=== PATIENT | male | born 1955 | race Caucasian/White ===

== ENCOUNTER → 2018-03-05 16:57 | Outpatient (CLI) | payer OTHER, SELFPAY | PROVIDERS: Family Provider Family Medicine; PCP Family Medicine; Visit Provider Family Medicine | DX: S46.819A Strain of other muscles, fascia and tendons at shoulder and upper arm level, unspecified arm, initial encounter (principal) | CPT/HCPCS: 72050 ==

== ENCOUNTER → 2021-01-20 16:45 | Outpatient (CLI) | payer BC, SELFPAY ==
[2016-07-17 01:56] VITALS: BMI 28.8
[2021-01-20 18:38] LABS: ALB/GLOB Ratio 1.3 RATIO (0.9-2.4); AST(SGOT) 16 U/L (15-37); Alanine Aminotransfer ALT/SGPT 26 U/L (16-61); Albumin, Serum 3.9 g/dL (3.2-5.0); Alkaline Phosphatase 55 U/L (45-117); Anion Gap 5 (5-15); BUN 14 mg/dL (7-18); BUN/Creat Ratio 13.2 RATIO (10-20); Calcium,Total 9.3 mg/dL (8.5-10.1); Chloride 103 mmol/L (98-107); Creatinine, Serum 1.06 mg/dL (0.70-1.30); EST Glomerular Filtration Rate 75 mL/min (>60); Est Glom Filt Rate - Afr Amer 91 mL/min (>60); Ferritin 88 ng/mL (26-388); Globulin 3.1 g/dL (2.2-4.2); Glucose 90 mg/dL (74-106); Magnesium 2.4 mg/dL (1.6-2.6); Potassium 3.8 mmol/L (3.5-5.1); Sodium Level 136 mmol/L (136-145)
== END ==
PROVIDERS: Family Medicine; PCP Family Medicine; Visit Provider Family Medicine
DX: R25.2 Cramp and spasm (principal)
CPT/HCPCS: 36415; 80053; 82728; 83735; 84443

== ENCOUNTER → 2023-12-07 | Outpatient (CLI) | payer MEDICARE, OTHER, SELFPAY ==
--- NOTE | 2023-12-07 10:18 | RAD_ITS ---
STUDY: X-RAY CHEST REASON FOR EXAM: Male, 68 years old. cough, wheeze TECHNIQUE: PA and lateral views of the chest. COMPARISON: 2016 FINDINGS: The lungs are clear and expanded. There is no demonstrated pleural abnormality. Normal size heart. Normal mediastinum and johnna. Normal visualized pulmonary arteries. Normal visualized aortic arch and descending thoracic aorta. Normal visualized thoracic spine. Normal visualized ribs, clavicles, and shoulders. There is no demonstrated abnormality of the visualized soft tissue structures of the upper abdomen. RAD/Chest PA and Lateral IMPRESSION: No acute pulmonary process Electronically Signed: Pedro Greer MD at 11:46 EDT ,
[2023-12-07 12:57] LABS: Absolute Lymphocyte Count 1.18 X10^3/uL (0.83-4.51); Basophil# 0.03 X10^3/uL; Basophil% 0.5 % (0-1); Eosinophil# 0.16 X10^3/uL; Eosinophils% 2.7 % (0-5); Erythrocyte Sedimentation Rate 1 mm/hr (0-20); Hematocrit 46.9 % (40-54); Hemoglobin 15.8 g/dL (13.0-16.5); Lymphocyte # 1.18 X10^3/ul (0.83-4.51); Lymphocyte % 19.8 % (19-41); Mean Corp Hgb Conc 33.7 g/dL (32-36); Mean Corpuscular Hgb 31.6 pg (27.0-32.0); Mean Corpuscular Volume 93.8 fL (80-94); Mean Platelet Vol. 9.9 fl (6.2-12.0); Monocyte% 10.1 % (0-10); NRBC Flagged by Analyzer 0 % (0-5); Neutrophil # 3.96 X10^3/uL (2.7-7.7); Neutrophil % 66.6 % (47-70); Platelet Count 268 K/mm3 (150-450); RBC Distribution Width CV 12.5 % (11.6-14.6); RBC Distribution Width SD 42.8 fl (35.1-43.9)
[2023-12-07 13:16] LABS: ALB/GLOB Ratio 1.1 RATIO (0.9-2.4); AST(SGOT) 15 U/L (15-37); Alanine Aminotransfer ALT/SGPT 25 U/L (16-61); Albumin, Serum 3.8 g/dL (3.2-5.0); Alkaline Phosphatase 56 U/L (45-117); Anion Gap 6 (5-15); BUN 11 mg/dL (7-18); BUN/Creat Ratio 11.9 RATIO (10-20); Calcium,Total 9.2 mg/dL (8.5-10.1); Chloride 104 mmol/L (98-107); Cholesterol 213 mg/dL (200); Creatinine, Serum 0.93 mg/dL (0.70-1.30); EST Glomerular Filtration Rate 87 mL/min (>60); Est Glom Filt Rate - Afr Amer 105 mL/min (>60); Ferritin 67 ng/mL (26-388); GGTP 28 U/L (15-85); Globulin 3.4 g/dL (2.2-4.2); Glucose 116 mg/dL (74-106); High Density Lipoprotein 117 mg/dL; Iron 142 ug/dL (65-175); PSA,Total - Annual Screen 0.74 ng/mL (0.00-4.00); Potassium 4.2 mmol/L (3.5-5.1); Protein, Total 7.2 g/dL (6.4-8.2); Sodium Level 136 mmol/L (136-145); Thyroid Stim Hormone (TSH) 1.94 uIU/mL (0.358-3.74); Triglycerides 64 mg/dL; Very Low Density Lipoprotein 13 mg/dL (5-40)
[2023-12-07 15:35] LABS: Vitamin B12 347 pg/mL (211-911); Vitamin D,25 Hydroxy 29.2 ng/mL
== END | disposition home or self-care (01) ==
LOC: MTLAB 10:18
PROVIDERS: PCP Family Medicine; Referring Provider Family Medicine; Visit Provider Family Medicine
DX: R06.2 Wheezing (principal); F10.10 Alcohol abuse, uncomplicated; R53.83 Other fatigue; L74.9 Eccrine sweat disorder, unspecified; Z13.220 Encounter for screening for lipoid disorders; Z12.5 Encounter for screening for malignant neoplasm of prostate
CPT/HCPCS: 36415; 71046; 80053; 80061; 82306; 82533; 82607; 82728; 82977; 83540; 84153; 84403; 84443; 85025; 85652; G0103

== ENCOUNTER 2024-04-01 12:40 | Outpatient (CLI) | payer MEDICARE, OTHER, SELFPAY ==
--- NOTE | 2024-04-01 12:42 | CT_ITS ---
STUDY: LOW DOSE CT LUNG CANCER SCREENING REASON FOR EXAM: Male, 68 years old. smoker. Patient smokes 1 pack per day for 40 years. RADIATION DOSAGE (If Supplied By Facility): CTDIvol = ( 3.02 ) mGy, DLP = ( 103.07 ) mGycm TECHNIQUE: No contrast was administered. Low dose technique was utilized (average mAS-38 and kVp 120). 1.25 mm axial source images with a slice interval of 1.25-mm were reconstructed in lung windows. 2.5 mm axial source images with a slice interval of 2.5-mm were reconstructed in lung windows. 5.0 mm axial source images with a slice interval of 5.0-mm were reconstructed in soft tissue windows. COMPARISON: Comparison is made with prior study dated April 24, 2015. NODULES: No suspicious nodule is seen. Emphysema: No significant emphysematous changes present. Endobronchial lesion: None Aorta: Mild atherosclerotic plaque formation of the aortic arch. CORONARY ARTERIES: Coronary artery calcification is seen. Heart: Unremarkable Pulmonary artery: Unremarkable Mediastinal nodes: Unremarkable Other chest and abdominal findings: CT/Low Dose CT Lung Screening IMPRESSION: Lung-RADS category 2 - Continue annual screening with LDCT in 12 months. IMPORTANT NOTES FOR USE: ACR Lung-RADS Version 1.1 Assessment Categories Release Date: 2018 Category: Coded 0-4 bases on nodule(s) with highest degree of suspicion. Negative screen is defined as categories 1 and 2; a positive screen is defined as categories 3 and 4. Category 3 and 4A nodules that are unchanged on interval CT should be coded as category 2, and individuals returned to screening in 12 months. Category 4X: Category 3 or 4 nodules with additional imaging findings that increase the suspicion of lung cancer, such as spiculation, GGN that doubles in size in 1 year, enlarged lymph notes, etc. Category Modifiers: S (significant finding unrelated to lung cancer) Electronically Signed: Beny Mendiola MD at 11:10 EDT ,
== END 2024-04-01 23:59 | disposition home or self-care (01) ==
LOC: CT 12:42
PROVIDERS: PCP Family Medicine; Referring Provider Family Medicine; Visit Provider Family Medicine
DX: Z12.2 Encounter for screening for malignant neoplasm of respiratory organs (principal); F17.210 Nicotine dependence, cigarettes, uncomplicated; I25.10 Atherosclerotic heart disease of native coronary artery without angina pectoris
CPT/HCPCS: 71271

== ENCOUNTER 2025-01-19 13:02 | Day surgery (SDC) | payer MEDICARE, OTHER, SELFPAY ==
[2025-01-19] VITALS (13 sets, daily range): BP systolic 124–144; BP diastolic 76–92; PULSE 64–89; RESP 11–18; TEMP 36.4–37.2; O2SAT 92–99; BMI 26.9
[2025-01-19 14:20] LABS: Mucous, Urine 0 SEEN /hpf (<or=2+); Red Blood Cells-Urine 0 SEEN /hpf (0-5); Squamous Epithelial Cells - UA 0 SEEN /hpf (0-5)
[2025-01-19 14:22] LABS: Hematocrit 41.2 % (40-54); Hemoglobin 14.6 g/dL (13.0-16.5); Immature Granulocytes Count 0.040 X10^3/uL (0.0-0.0); Mean Corp Hgb Conc 35.4 g/dL (32-36); Mean Corpuscular Volume 93.2 fL (80-94); Mean Platelet Vol. 9.5 fl (6.2-12.0); NRBC Flagged by Analyzer 0 % (0-5); Platelet Count 221 K/mm3 (150-450); RBC Distribution Width CV 12.4 % (11.6-14.6); RBC Distribution Width SD 42.8 fl (35.1-43.9); Red Blood Count 4.42 M/mm3 (4.6-6.2); White Blood Count 10.6 K/mm3 (4.4-11.0)
--- NOTE | 2025-01-19 14:28 | CT_ITS ---
PROCEDURE: ABDOMEN/PELVIS W IV CONT ONLY 01/19/2025 REASON FOR EXAM: RLQ ABD PAIN TECHNIQUE: ABDOMEN/PELVIS W IV CONT ONLY Coronal and Sagittal reconstruction series were provided. CONTRAST: Isovue-300 VOLUME: 100 mL One or more dose reduction techniques were used (e.g., Automated exposure control, adjustment of the mA and/or kV according to patient size, use of iterative reconstruction technique. RADIATION DOSE SUMMARY: CTDlvol: 18.1 mGy DLP: 871.72 mGycm COMPARISON: None FINDINGS: Lung bases: The lung bases are clear. Liver: Normal size. No mass. Gallbladder: Gallbladder is unremarkable. Spleen: Normal size. Pancreas: Normal size without evidence of mass surrounding inflammation or ductal dilation. Adrenals: Left adrenal nodule consistent with an adenoma Kidneys: Normal renal sizes. No hydronephrosis. Bladder: Bladder is unremarkable. Bowel: Unremarkable Appendix: The appendix appears distended with a surrounding inflammatory process. Findings present are consistent with appendicitis. No evidence of abscess. Appendicoliths are seen within the appendiceal lumen. Lymph nodes: Unremarkable. Vasculature: The abdominal aorta and IVC are normal. Peritoneum / Retroperitoneum: Unremarkable Bones: Degenerative changes of the spine. Loss of the normal lumbar lordosis. CT/Abdomen/Pelvis W IV Cont ONLY IMPRESSION: Findings in keeping with a acute appendicitis. Calcified appendicoliths are seen within the appendiceal lumen. Loss of the normal lumbar lordosis as well as multilevel disc space narrowing. Red Alert: Acute appy The critical information above was relayed directly by me by telephone to Shun Nova on 01/19/2025 at 3:23 pm with readback verification. Reading Location: [place] [id number]
--- NOTE | 2025-01-19 14:29 | EDS_ITS ---
HPI HPI - GI History of Present Illness Chief Complaint: Abd Pain Informant: patient Abdominal Pain/Flank Pain Onset: Today and Yesterday Context: Gradual Onset Timing: Continuous Quality: Cramping and Stabbing Location: RLQ Current Severity: Moderate Maximum Severity: Moderate Worsened by: Car ride Relieved by: Nothing Nausea/Vomiting/Emesis GI Symptom: Positive for Nausea Onset: Today Severity: Mild Diarrhea/Melena/Hematochezia GI Symptom: Negative for Diarrhea, Melena or Hematochezia Associated Symptoms Associated Symptoms: Negative for Dysuria, Frequency, Hematuria or Urgency Narrative Narrative: 69-year-old male no prior abdominal surgeries. Says last night around 04/14/1930 getting right lower quadrant dull that is progressively worse. No prior history of this. Associated dry heaves but no vomiting no diarrhea. No dysuria. No fever. Said he had a bowel movement yesterday very small bowel this morning. States has never had pain like this before in his abdomen. Prior similar symptoms: No Recent Illness/Hospitalization: No PFSH PFSH Medical History GERD (gastroesophageal reflux disease) Trigger finger Home Medications ?Medication ?Instructions ?Recorded ?Last Taken ?Type calcium carbonate (Antacid 400 mg PO Q4H PRN heartburn 01/19/25 Unknown History (calcium carbonate)) Allergy/AdvReac Type Severity Reaction Status Date / Time No Known Allergies Allergy Verified 01/19/25 13:03 Social History Smoking Status: Current every day smoker tobacco type: cigarettes ROS ROS ED ROS Narrative Abdominal pain. Nausea. Constitutional Constitutional ED: Denies chills or fever(s) ENT ENT ED: Denies ear pain Cardiovascular Cardiovascular: Denies chest pain Respiratory/Chest Respiratory/Chest: Denies cough or dyspnea Gastrointestinal Gastrointestinal: Reports abdominal pain; Denies diarrhea, melena, nausea or vomiting Genitourinary Genitourinary ED: Denies dysuria or hematuria Musculoskeletal Musculoskeletal: Denies arthralgias Integumentary Denies abscess Neurologic Neurologic: Denies headache(s) Psychiatric Psychiatric: Denies anxiety Endocrine Endocrinology: Denies polydipsia Hematologic/Lymphatic Hematologic/Lymphatic: Denies easy bleeding Allergic/Immunologic Allergic/Immunologic ED: Denies mouth swelling, tongue swelling or urticaria EXAM Physical Exam Narrative Exam Narrative: C9-year-old male vital signs stable afebrile. Lying in bed. No one else present in room. H EENT exam pupils round reactive light. Moist mucous membranes. Neck nontender no JVD. No lymphadenopathy. Lungs clear to auscultation bilaterally. Heart regular rhythm rate about 85 no murmur. Chest wall ribs nontender. Abdomen soft nondistended. Normal bowel sounds. He does have squeezing tenderness right lower quadrant. No hernia or mass. No pul satile mass. Right upper left upper left lower quadrant unremarkable. He is moving all 4 extremities. Nontender no edema. Neurologically is awake alert. Answering questions following commands. Const Vital Signs: 01/19/25 13:03 01/19/25 14:47 Temperature 97.8 F 98.2 F Temperature Source Temporal Oral Pulse Rate 86 85 Respiratory Rate 18 11 L Blood Pressure 125/92 H 144/90 H Blood Pressure Mean 103 108 Pulse Ox 98 97 Oxygen Delivery Method Room Air Room Air Positive well nourished and well developed; Negative for cachectic, contractures or unkempt General Appearance ED: well developed and NAD; Negative for unkempt, cachectic, contractures or pallor Nutritional Appearance: Negative for cachectic HEENT Reports moist mucous membranes normocephalic and atraumatic Eyes PERRL General Eye ED: Negative for pale conjunctiva or scleral icterus Neck no lymphadenopathy, supple and no JVD General: Negative for tenderness Resp normal respiratory effort and clear to auscultation bilaterally Cardio regular rate, regular rhythm, S1 normal heart sound, S2 normal heart sound and no murmurs GI non-distended and no masses; Negative for non-tender Auscultation: normoactive bowel sounds Palpation: soft and tender; Negative for guarding, rigid, hepatomegaly, splenomegaly, hernia, mass, pulsatile mass or rebound tenderness present Back/Spine no CVA tenderness General Back: Negative for CVA tenderness Cervical Spine: Negative for cervical spine tenderness Thoracic Spine / Upper Back: Negative for thoracic spinal tenderness Lumbar Spine / Lower Back: Negative for lumbar spinal tenderness Coccyx: Negative for other Extremity full ROM General Extremety ED: Negative for edema or tenderness General Extremity: Negative for edema Neuro CN's II-XII intact bilaterally and moves all extremities Sensorium / Orientation: alert, oriented to person, oriented to place and oriented to time Motor Exam: strength 5/5 throughout Psych mental status grossly normal and thought process normal Appearance: Negative for unkempt Attitude: No agitated Mood & Affect: Negative for depressed, anxious or tearful Skin no wounds General Skin Exam: Negative for jaundice or pallor Lesions: no lesions Rashes: no rashes Trauma: Negative for abrasion Nails: Negative for discolored MDM MDM MDM Narrative Medical decision making narrative: 69-year-old male right lower quadrant abdominal pain differential included appendicitis, right-sided diverticulitis I do not think it is a kidney stone. I do not think it is his gallbladder. Currently does not look obstructed. I do not see an obvious hernia. I would treated with morphine and Zofran. Liter fluid. Abdominal labs and a CT of his abdomen pelvis. Exam, history and CT consistent with acute appendicitis. To be treated with IV Zosyn. I have general surgery on page talk to them about the patient to be taken to the OR for appendicitis. Patient doing well on repeat exam at 3:25 PM. I told the his believe his about the CAT scan results and he will be called to the operating room. I spoke to the general surgeon. He will admit the patient and is awaiting an open OR to do an appendectomy. History & Record Review Additional record(s) reviewed:: Prior inpatient record, Prior outpatient record and Prior ED visit Lab Data Attestation: I reviewed the patient's lab results. Lab results narrative: CBC shows a white count 10.6. H&H 14 and 41. Platelets 221. Chemistries show sodium 133. Gap 12. Normal BUN and creatinine. Glucose 74. Liver enzymes show a total bilirubin 1.78. Lipase 10. UA negative so far except for ketones. Micro pending. CAT scan abdomen pelvis shows acute appendicitis with appendicolith. Labs: Laboratory Results - last 24 hr 01/19/25 14:05 WBC 10.6 RBC 4.42 L Hgb 14.6 Hct 41.2 MCV 93.2 MCH 33.0 H MCHC 35.4 RDW Std Deviation 42.8 RDW Coeff of [place] 12.4 Plt Count 221 MPV 9.5 Immature Gran % (Auto) 0.400 Neut % (Auto) 80.4 H Lymph % (Auto) 7.3 L [place] % (Auto) 10.8 H Eos % (Auto) 0.9 Baso % (Auto) 0.2 Absolute Neuts (auto) 8.5 H Absolute Lymphs (auto) 0.77 L Nucleated RBC % 0 Sodium 133 Potassium 3.7 Chloride 98 Carbon Dioxide 23.1 Anion Gap 12 BUN 5 Creatinine 0.83 Estim Creat Clear Calc 83.55 Est GFR (MDRD) Non-Af 96 BUN/Creatinine Ratio 5.6 L Glucose 74 Calcium 8.6 Total Bilirubin 1.78 H AST 14 ALT 16 Alkaline Phosphatase 61 Total Protein 0.6 L Albumin 4.1 Globulin -3.5 L Albumin/Globulin Ratio -1.2 L Lipase 10 L Urine Color Straw Urine Clarity Clear Urine pH 6.5 Ur Specific [place] 1.010 Urine Protein 15 H Urine Glucose (UA) Normal Urine Ketones 15 H Urine Occult Blood Negative Urine Nitrite Negative Urine Bilirubin Negative Urine Urobilinogen Normal Ur Leukocyte Esterase Negative Radiography Diagnostic Testing: Clinical Impression(s) from Imaging Studies Abdomen/Pelvis CT 01/19/25 14:28 IMPRESSION: Findings in keeping with a acute appendicitis. Calcified appendicoliths are seen within the appendiceal lumen. Loss of the normal lumbar lordosis as well as multilevel disc space narrowing. Red Alert: Acute appy The critical information above was relayed directly by me by telephone to Shun Tejeda on 01/19/2025 at 3:23 pm with readback verification. Reading Location: [facility] Discharge Plan Dx/Rx/DC Orders Clinical Impression: Abdominal pain, acute, Acute appendicitis Disposition Disposition: [facility]
[2025-01-19] MEDS: 0.9% Normal Saline (1000mL) 1,000 ML 999 ML IV (14:39)
[2025-01-19 14:45] LABS: Color, Urine Straw (Yellow); Glucose, Dipstick Normal (Normal); Ketone-Dipstick 15 mg/dl (Negative); Leukocyte Esterase-Dipstick Negative /ul (Negative); Nitrite-Dipstick Negative (Negative); Occult Blood-Urine Negative /ul (Negative); Protein-Dipstick 15 mg/dl (Negative); Specific Gravity, Urine 1.010 (1.002-1.030); Urine Bilirubin Dipstick Negative (Negative)
[2025-01-19 15:16] LABS: Lipase 10 U/L (13-75)
[2025-01-19 15:20] LABS: AST(SGOT) 14 U/L (<=37); Alanine Aminotransfer ALT/SGPT 16 U/L (<=46); Albumin, Serum 4.1 g/dL (3.4-4.8); Alkaline Phosphatase 61 U/L (40-129); Anion Gap 12 (5-15); BUN 5 mg/dL (4-19); BUN/Creat Ratio 5.6 RATIO (10-20); Calcium,Total 8.6 mg/dL (7.6-11.0); Carbon Dioxide 23.1 mmol/L (21.0-32.0); Chloride 98 mmol/L (98-108); Estimated Creatinine Clearance 83.55 ml/min (50-250); Globulin -3.5 g/dL (2.2-4.2); Glucose 74 mg/dL (70-99); Potassium 3.7 mmol/L (3.3-5.1)
[2025-01-19] MEDS: Piperacil/Tazobactam 4.5 GM in 0.9% Normal Saline (100mL MB+) 100 ML IV (15:46)
--- NOTE | 2025-01-19 15:50 | PRE.ANES_ITS ---
ASA Classification* ASA Classification ASA Classification: 2 and E Assessment & Plan Anesthesia* Anesthesia Assessment Anesthesia Assessment: Discussed sedation and/or anesthesia options, risks, benefits, and alternatives with patient/parents/legal guardian/POA. Questions invited. The patient/parents/legal guardian/POA seems to understand and agrees to proceed with anesthesia plan. Reviewed the physical assessment, medical history, allergy history and patient home medications list prior to surgery/procedure/anesthetic and documented any changes. Performed airway and anesthesia risk assessments. Anesthesia Type Anesthesia Type: General Anesthesia Focused Assessment* Temperature: 98.9 F Pulse Rate: 78 Blood Pressure: 138/78 Respiratory Rate: 18 Pulse Ox: 98 Airway Assessment Mouth opens: >3 cm Mallampati Score: II Labs Anesthesia Preop lab: CBC WBC 10.6 K/mm3 (4.4-11.0) 01/19/25 14:05 01/19/25 RBC 4.42 M/mm3 (4.6-6.2) L 01/19/25 14:05 01/19/25 Hgb 14.6 g/dL (13.0-16.5) 01/19/25 14:05 01/19/25 Hct 41.2 % (40-54) 01/19/25 14:05 01/19/25 Plt Count 221 K/mm3 (150-450) 01/19/25 14:05 01/19/25 CHEMISTRY Potassium 3.7 mmol/L (3.3-5.1) 01/19/25 14:05 01/19/25 Sodium 133 mmol/L (133-145) 01/19/25 14:05 01/19/25 Magnesium 2.4 mg/dL (1.6-2.6) 01/20/21 16:47 01/20/21 BUN 5 mg/dL (4-19) 01/19/25 14:05 01/19/25 Creatinine 0.83 mg/dL (0.70-1.20) 01/19/25 14:05 01/19/25 Glucose 74 mg/dL (70-99) 01/19/25 14:05 01/19/25 TSH 1.94 uIU/mL (0.358-3.74) 12/07/23 10:36 COAG Pre-Assessment Diagnosis/Proposed Procedure Planned Operative Procedure(s): Laparoscopic appendectomy Anesthesia History Anesthesia History - meeting facilitator: Anesthesia History - meeting facilitator Hx Hospitalization No 07/17/16 01:59 Any Problems With Anesthesia No 01/19/25 15:48 Cholinesterase deficiency No 01/19/25 15:48 You/Your Family Experience No 01/19/25 15:48 fever (hyperthermia) with Relationship Recent Exposure to Contagious No 01/19/25 15:48 Disease Does patient have nerve No 01/19/25 15:48 stimulator Patient instructed to have No 01/19/25 15:48 device shut off --Does patient have Pacemaker or ICD? When Was Last Pacemaker Check QUESTION #4 FULL TEXT: You/Your Family Experience fever (hyperthermia) with Anesthesia Last Oral Intake Last Oral intake: Last Oral Intake NPO since Meds taken in AM with sips of water? 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 - meeting facilitator: PONV - meeting facilitator Female HX of Motion Sickness HX of N/V After Surgery Non-Smoker Duration of Surgery greater than 60 minutes Number of Risk Factors PONV Score Height & Weight Height & Weight: Anesthesia: Height & Weight Height 5 ft 8 in 01/19/25 15:48 Weight: 80.15 kg 01/19/25 15:48 Body Mass Index (BMI) 26.9 01/19/25 15:48 Respiratory Assessment Respiratory Assessment - meeting facilitator: Respiratory Tract Infection Hx - meeting facilitator Hx Respiratory Tract Infection No 01/19/25 15:48 STOP Sleep Apnea STOP Sleep Apnea - meeting facilitator: STOP Sleep Apnea - meeting facilitator Hx Hypertension No 01/19/25 15:48 Hx Sleep Apnea No 01/19/25 15:48 CPAP No 10/15/13 03:39 BIPAP No 10/15/13 03:39 Do you snore loudly (louder No 01/19/25 15:48 than talking or can be heard Do you often feel tired/ No 01/19/25 15:48 fatigued/ sleepy during daytime? Has anyone observed you stop No 01/19/25 15:48 breathing during sleep? STOP Results Negative 01/19/25 15:48 QUESTION #5 FULL TEXT : Do you snore loudly (louder than talking or can be heard through closed doors)? Tobacco Use History Tobacco Use History - meeting facilitator: Tobacco Use History - meeting facilitator Tobacco Use Smoking Status Current every day smoker 01/19/25 13:51 Hx Tobacco Use Yes 10/15/13 03:39 Years Smoking Packs Smoked per Day Smoking Cessation Date was within the last 15 years Hx Smoking Cessation Date Hx Smoking Cessation No 01/19/25 13:51 Counseling Hematologic Medial History Hematologic Hx - meeting facilitator: Hematologic Medical Hx - trouble locater Hx of Blood Transfusion Hx of Transfusion in last 3 Months Date of Last Transfusion (if within last 3 months) Ever experience any problems with transfusion(s)? Specify any problems Hx of Preganancy in last 3 Months Nurse Filling Out Transfusion & Questions: Date: Time: Patient unable to answer at this time (ie. 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 History - meeting facilitator: /Reproductive Hx- meeting facilitator Hx Now No 01/19/25 15:48 Gestational Age (in weeks): EDC: Hx Hx Para Hx Section SAB No 01/19/25 15:48 Active Medications Active Medications: Current Medications Generic Name Dose Route Start Last Admin Trade Name Freq PRN Reason Stop Dose Admin Piperacillin Sod/Tazobactam 100 mls @ 200 mls/hr 01/19/25 15:23 01/19/25 15:46 Sod 4.5 gm/ Sodium Chloride IV 01/19/25 15:52 200 mls/hr X1 ONE Administration Iopamidol 0 ml 01/19/25 14:30 Contrast Allergy Safety Check IV X1 WILBER PFSH Medical History GERD (gastroesophageal reflux disease) Trigger finger Home Medications ?Medication ?Instructions ?Recorded ?Last Taken ?Type calcium carbonate (Antacid 400 mg PO Q4H PRN heartburn 01/19/25 Unknown History (calcium carbonate)) Allergy/AdvReac Type Severity Reaction Status Date / Time No Known Allergies Allergy Verified 01/19/25 13:03 Social History Smoking Status: Current every day smoker tobacco type: cigarettes Review of Systems (Anesthesia) ROS Narrative System reviewed and no additional complaints, except as documented.
--- NOTE | 2025-01-19 16:01 | HP.PCM_ITS ---
HPI - General General Date of Admission: 01/19/25 Date of Service: 01/19/25 Chief Complaint: Right lower quadrant pain/appendicitis HPI Narrative MELISSA YOUNG, is a 69 M who presents to the emergency department this afternoon with less than 24 hours of abdominal pain. He states that this started last evening as a generalized abdominal pain however this seemed to localize to the right lower quadrant. Due to worsening pain, he presented to the emergency department this afternoon. He was seen and evaluated by the ER staff. White blood cell count was normal however CT scan was performed that showed findings consistent with appendicitis with fecalith. There was no abscess or signs of perforation. General surgery was notified and immediate plans were made to proceed with appendectomy. He denied any nausea or vomiting. He did have some chills but no fever. He has no significant medical problems. [facility] Medical History GERD (gastroesophageal reflux disease) Trigger finger Home Medications ?Medication ?Instructions ?Recorded ?Last Taken ?Type calcium carbonate (Antacid 400 mg PO Q4H PRN heartburn 01/19/25 Unknown History (calcium carbonate)) Allergy/AdvReac Type Severity Reaction Status Date / Time No Known Allergies Allergy Verified 01/19/25 13:03 Social History Smoking Status: Current every day smoker tobacco type: cigarettes ROS Constitutional Constitutional: Reports systems reviewed and no addt'l complaints, except as documented Eyes Eyes: Reports systems reviewed and no addt'l complaints, except as documented ENT HEENT: Reports systems reviewed and no addt'l complaints, except as documented Cardiovascular Cardiovascular: Reports systems reviewed and no addt'l complaints, except as documented Respiratory/Chest Respiratory/Chest: Reports systems reviewed and no addt'l complaints, except as documented Gastrointestinal Gastrointestinal: Reports systems reviewed and no addt'l complaints, except as documented Vital Signs Vital Signs Vital Signs: 01/19/25 13:03 01/19/25 14:47 01/19/25 15:48 Temperature 97.8 F 98.2 F 97.8 F Temperature Source Temporal Oral Pulse Rate 86 85 64 Respiratory Rate 18 11 L 18 Blood Pressure 125/92 H 144/90 H 138/76 H Blood Pressure Mean 103 108 96 Blood Pressure Source Blood Pressure Position Blood Pressure Location Pulse Ox 98 97 99 Oxygen Delivery Method Room Air Room Air 01/19/25 15:48 01/19/25 15:50 Temperature 98.9 F 98.9 F Temperature Source Oral Pulse Rate 78 78 Respiratory Rate 18 18 Blood Pressure 138/78 H 138/78 H Blood Pressure Mean 98 Blood Pressure Source Monitor Blood Pressure Position Semi-Fowlers Blood Pressure Location Right Arm Pulse Ox 98 98 Oxygen Delivery Method Room Air Weight Weight: 176 lb 11.2 oz Body Mass Index (BMI) 26.9 Physical Exam Narrative He is alert and oriented x 3. He is in no acute distress. Head is normocephalic and atraumatic. Pupils are equal round and reactive to light. Abdomen is soft, nondistended. He does have mild tenderness in the right lower quadrant. No rebound or guarding. Results Lab / Micro Data 01/19/25 14:05 01/19/25 14:05 Labs: Laboratory Results - last 24 hr 01/19/25 14:05: WBC 10.6, RBC 4.42 L, Hgb 14.6, Hct 41.2, MCV 93.2, MCH 33.0 H, MCHC 35.4, RDW Std Deviation 42.8, RDW Coeff of [place] 12.4, Plt Count 221, MPV 9.5, Immature Gran % (Auto) 0.400, Neut % (Auto) 80.4 H, Lymph % (Auto) 7.3 L, [place] % (Auto) 10.8 H, Eos % (Auto) 0.9, Baso % (Auto) 0.2, Absolute Neuts (auto) 8.5 H, Absolute Lymphs (auto) 0.77 L, Nucleated RBC % 0, Sodium 133, Potassium 3.7, Chloride 98, Carbon Dioxide 23.1, Anion Gap 12, BUN 5, Creatinine 0.83, Estim Creat Clear Calc 83.55, Est GFR (MDRD) Non-Af 96, BUN/Creatinine Ratio 5.6 L, Glucose 74, Calcium 8.6, Total Bilirubin 1.78 H, AST 14, ALT 16, Alkaline Phosphatase 61, Total Protein 6.5, Albumin 4.1, Globulin -3.5 L, A lbumin/Globulin Ratio -1.2 L, Lipase 10 L, Urine Color Straw, Urine Clarity Clear, Urine pH 6.5, Ur Specific [place] 1.010, Urine Protein 15 H, Urine Glucose (UA) Normal, Urine Ketones 15 H, Urine Occult Blood Negative, Urine Nitrite Negative, Urine Bilirubin Negative, Urine Urobilinogen Normal, Ur Leukocyte Esterase Negative, Urine RBC 0 SEEN, Urine WBC 0-5 SEEN, Ur Squamous Epith Cells 0 SEEN, Urine Bacteria 0 SEEN, Urine Mucus 0 SEEN Imaging Radiology Impression Abdomen/Pelvis CT 01/19/25 14:28 IMPRESSION: Findings in keeping with a acute appendicitis. Calcified appendicoliths are seen within the appendiceal lumen. Loss of the normal lumbar lordosis as well as multilevel disc space narrowing. Red Alert: Acute appy The critical information above was relayed directly by me by telephone to Shun Tejeda on 01/19/2025 at 3:23 pm with readback verification. [facility] Assessment & Plan Assessment/Plan (1) Acute appendicitis: PLAN: Plan The patient is a 69-year-old male with acute appendicitis. I have offered him a laparoscopic appendectomy. We discussed the details of the planned procedure as well as risks benefits and alternatives. He wishes to proceed. This will begin momentarily
--- NOTE | 2025-01-19 16:20 | PRE.ANES_ITS ---
ASA Classification* ASA Classification ASA Classification: 2 and E Assessment & Plan Anesthesia* Anesthesia Assessment Anesthesia Assessment: Discussed sedation and/or anesthesia options, risks, benefits, and alternatives with patient/parents/legal guardian/POA. Questions invited. The patient/parents/legal guardian/POA seems to understand and agrees to proceed with anesthesia plan. Reviewed the physical assessment, medical history, allergy history and patient home medications list prior to surgery/procedure/anesthetic and documented any changes. Performed airway and anesthesia risk assessments. Anesthesia Type Anesthesia Type: General Anesthesia Focused Assessment* Temperature: 98.9 F Pulse Rate: 78 Blood Pressure: 138/78 Respiratory Rate: 18 Pulse Ox: 98 Airway Assessment Mouth opens: >3 cm Mallampati Score: II Labs Anesthesia Preop lab: CBC WBC 10.6 K/mm3 (4.4-11.0) 01/19/25 14:05 01/19/25 RBC 4.42 M/mm3 (4.6-6.2) L 01/19/25 14:05 01/19/25 Hgb 14.6 g/dL (13.0-16.5) 01/19/25 14:05 01/19/25 Hct 41.2 % (40-54) 01/19/25 14:05 01/19/25 Plt Count 221 K/mm3 (150-450) 01/19/25 14:05 01/19/25 CHEMISTRY Potassium 3.7 mmol/L (3.3-5.1) 01/19/25 14:05 01/19/25 Sodium 133 mmol/L (133-145) 01/19/25 14:05 01/19/25 Magnesium 2.4 mg/dL (1.6-2.6) 01/20/21 16:47 01/20/21 BUN 5 mg/dL (4-19) 01/19/25 14:05 01/19/25 Creatinine 0.83 mg/dL (0.70-1.20) 01/19/25 14:05 01/19/25 Glucose 74 mg/dL (70-99) 01/19/25 14:05 01/19/25 TSH 1.94 uIU/mL (0.358-3.74) 12/07/23 10:36 COAG Pre-Assessment Diagnosis/Proposed Procedure Planned Operative Procedure(s): Laparoscopic appendectomy Anesthesia History Anesthesia History - stitcher tape controlled machine: Anesthesia History - stitcher tape controlled machine Hx Hospitalization No 07/17/16 01:59 Any Problems With Anesthesia No 01/19/25 15:48 Cholinesterase deficiency No 01/19/25 15:48 You/Your Family Experience No 01/19/25 15:48 fever (hyperthermia) with Relationship Recent Exposure to Contagious No 01/19/25 15:48 Disease Does patient have nerve No 01/19/25 15:48 stimulator Patient instructed to have No 01/19/25 15:48 device shut off --Does patient have Pacemaker or ICD? When Was Last Pacemaker Check QUESTION #4 FULL TEXT: You/Your Family Experience fever (hyperthermia) with Anesthesia Last Oral Intake Last Oral intake: Last Oral Intake NPO since Meds taken in AM with sips of water? 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 - stitcher tape controlled machine: PONV - stitcher tape controlled machine Female HX of Motion Sickness HX of N/V After Surgery Non-Smoker Duration of Surgery greater than 60 minutes Number of Risk Factors PONV Score Height & Weight Height & Weight: Anesthesia: Height & Weight Height 5 ft 8 in 01/19/25 15:48 Weight: 80.15 kg 01/19/25 15:48 Body Mass Index (BMI) 26.9 01/19/25 15:48 Respiratory Assessment Respiratory Assessment - stitcher tape controlled machine: Respiratory Tract Infection Hx - stitcher tape controlled machine Hx Respiratory Tract Infection No 01/19/25 15:48 STOP Sleep Apnea STOP Sleep Apnea - stitcher tape controlled machine: STOP Sleep Apnea - stitcher tape controlled machine Hx Hypertension No 01/19/25 15:48 Hx Sleep Apnea No 01/19/25 15:48 CPAP No 10/15/13 03:39 BIPAP No 10/15/13 03:39 Do you snore loudly (louder No 01/19/25 15:48 than talking or can be heard Do you often feel tired/ No 01/19/25 15:48 fatigued/ sleepy during daytime? Has anyone observed you stop No 01/19/25 15:48 breathing during sleep? STOP Results Negative 01/19/25 15:48 QUESTION #5 FULL TEXT : Do you snore loudly (louder than talking or can be heard through closed doors)? 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 Specify any problems Hx of Preganancy in last 3 Months Nurse Filling Out Transfusion & Questions: Date: Time: Patient unable to answer at this time (ie. 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 History - stitcher tape controlled machine: /Reproductive Hx- stitcher tape controlled machine Hx Now No 01/19/25 15:48 Gestational Age (in weeks): EDC: Hx Hx Para Hx Section SAB No 01/19/25 15:48 Active Medications Active Medications: Current Medications Generic Name Dose Route Start Last Admin Trade Name Freq PRN Reason Stop Dose Admin Iopamidol 0 ml 01/19/25 14:30 Contrast Allergy Safety Check IV X1 WILBER PFSH Medical History GERD (gastroesophageal reflux disease) Trigger finger Home Medications ?Medication ?Instructions ?Recorded ?Last Taken ?Type calcium carbonate (Antacid 400 mg PO Q4H PRN heartburn 01/19/25 Unknown History (calcium carbonate)) Allergy/AdvReac Type Severity Reaction Status Date / Time No Known Allergies Allergy Verified 01/19/25 13:03 Social History Smoking Status: Current every day smoker tobacco type: cigarettes Review of Systems (Anesthesia) ROS Narrative System reviewed and no additional complaints, except as documented.
--- NOTE | 2025-01-19 16:20 | APP_PTH ---
PATIENT: MELISSA YOUNG LOC: [facility] [place] U#:[id number] AGE/SX: 69/M ROOM: RE01/19/[address]: Dr. Paolo Caraballo MD : 1955 BED: DIS: 01/19/2025 SPEC #: [id number] RECD: 01/20/25 09:06 STATUS: JORJE GORDON #: [id number] NICHELLE: 01/19/25 16:[address]: Paolo Caraballo DEPT: SURGICAL PATHOLOGY RECD BY: Ayaka Olsen ENTERED: 01/20/25 10:39 SP TYPE: APPENDIX OTHR DR: Dr. Mir Zamorano MD Tissues: A - Appendix, NOS Procedures: Surgery Specimen Level III HEADER OPERATION: Laparoscopic appendectomy PRE-OP DIAGNOSIS: Acute appendicitis TISSUE SUBMITTED: A. Appendix MICROSCOPIC DIAGNOSIS A. Appendix, acute appendicitis, appendectomy: - Acute gangrenous appendicitis with fecalith. MICROSCOPIC DESCRIPTION Slides are reviewed. GROSS DESCRIPTION A. Received in formalin labeled with the patient's name and date of . Designated as appendix is a 6.6 x 1.1 cm appendix with up to 2.7 cm of attached, congested mesoappendix. The serosa is harden-red to green with patchy adhesions and mild-moderate fibrinous exudate. The margin is inked black and shaved. Sectioning reveals green-brand to red mucosa with a moderate amount of slightly hemorrhagic fecal material within the lumen to include a fecalith. Fashion Styling Intern sections are submitted in 2 cassettes as follows:A1: Distal tipA2: Margin, cross-sections DE 01/20/2025 CPT: 81274
[2025-01-19] MEDS: Bupiv/Epi 0.25% 30 ML Vial (17:16)
--- NOTE | 2025-01-19 17:29 | DCINST_ITS ---
Discharge Instructions Diet Discharge Diet: Light diet - advance as tolerated Activity Discharge Activity: Return to Normal Activity and May Shower May shower in (days): 1 Ice area for (Minutes): 30 Lifting Restrictions: No lifting pushing or pulling more than 20 pounds for 4 weeks Dressing / Incision Call your doctor if your incision/area has: Continuous Slow Oozing, Sudden Increased Bleeding, Increased Pain/ Swelling, Increased Redness, Foul Smelling Discharge and Swelling at the incision site Call your doctor if you observe: Fever of 101 or Higher Cleanse incision/area with: Soap & Water Follow Up Care Please Follow Up With: Paolo Caraballo MD When: 2 weeks. Please call to schedule appointment Test Results: Test results from this visit will be discussed in further detail at your follow- up appointment, if applicable. Discharge Plan Admission Primary Reason for Your Visit: Appendicitis Attending Provider: Paolo Caraballo Primary Care Provider: Mir Zamorano Instructions Print Language: Micronesian Discharge Orders/Prescriptions Prescriptions: New oxycodone-acetaminophen [Percocet] 5-325 mg tablet 1 tab PO Q8H PRN (Reason: pain) 4 Days Qty: 12 0RF Continued calcium carbonate [Antacid (calcium carbonate)] 200 mg calcium (500 mg) tablet,chewable 400 mg PO Q4H PRN (Reason: heartburn) Referrals / Follow Up: Mir Zamorano MD [Primary Care Provider] - Disposition Disposition (needs filled in before D/C Order can be placed): Home, Self Care
--- NOTE | 2025-01-19 17:34 | OP.PCM_ITS ---
Procedures Digestive 40xxx-49xxx: [id number] Laparoscopy appendectomy Operative Report (Standard) Operative Information Date of Procedure: 01/19/25 Pre-Operative Diagnosis: Acute appendicitis Post-Operative Diagnosis: Acute appendicitis Surgery/Procedure Performed: Laparoscopic appendectomy artificial limb fitter: No Type of Anesthesia: General and Local RN Documented Start/Stop Times: Operation Date: 01/19/25 16:20 Case Time Anesthesia Start 01/19/25 16:26 Into Room 01/19/25 16:26 Procedure Start 01/19/25 16:46 Procedure End 01/19/25 17:22 Anesthesia End 01/19/25 17:26 Out of Room 01/19/25 17:26 Into Recovery 01/19/25 17:28 Procedure Start Time: 16:46 Procedure Stop Time: 17:22 Select all DRAINS/GRAFTS/IMPLANTS that apply: None Special Medications: 4.5 g Zosyn IV preop Estimated Blood Loss: 10 mL Specimen collected: Yes Description of specimen(s) removed: Appendix Description of surgery: The patient is a 69-year-old male who began having abdominal pain last evening. He presented to the emergency department this afternoon with ongoing right lower quadrant pain. He was seen evaluate by the ER staff. CT scan was performed and showed findings consistent with acute appendicitis. I was asked to see the patient. I offered him a laparoscopic appendectomy as treatment. We discussed the details of the planned procedure including the risks benefits and alternatives. And he wished to proceed. The patient was brought the operating room today following informed consent. Preoperative antibiotics were given and a timeout was performed. He was placed supine on the operative table with arms initially outstretched and arm boards. A general endotracheal anesthesia was induced. Once asleep his left arm was tucked at his side. His right arm was left outstretched on the armboard. The abdomen is then clipped prepped and draped in the usual sterile manner. A 5 mm incision was made just below the umbilicus which a 5 mm 0 degree scope was inserted. There were no signs of bowel or vascular injury. A 12 mm trocars placed under direct visualization in the left upper quadrant. And a 5 mm trocar was placed under direct visualization in the left lower quadrant. The patient was then rolled to the left. The appendix was clearly visible. It was certainly inflamed but not ruptured or perforated. The cecum appeared grossly normal. A [place] dissector was then used to create a small window in the mesentery near the base the appendix. A JANUARY stapler was fired across the base of the appendix flush with the cecum. A JANUARY vascular load was fired across the mesoappendix. With this the appendix was free. It was placed into a bag and brought out through the 12 mm trocar site. The trocar was replaced. There was some bleeding from the staple line on the cecum. A 5 mm clip classifications officer cc/cm was used to place a clip on the site of bleeding. This provided hemostasis. The right lower quadrant was then copiously irrigated with 2 L of saline until clear. Again hemostasis was excellent. There were no signs of bowel or vascular injury. The fascia at the 12 mm trocar site was closed using PDS with the aid of the fascial closure device. The remaining trocars were opened up. Insufflation was allowed to escape. A total of 20 cc of local anesthetic were injected into the incisions. The incisions were then closed with 4-0 Vicryl. Skin glue was applied as dressing. He was awakened from anesthesia and taken to recovery in good condition. Surgical Findings: Moderate acute appendicitis without perforation Complications Complications: No Admit VTE Documentation VTE Present on Admission: No VTE Mechan Device Prophylaxis: SCD's VTE Pharm Prophylaxis ordered?: No Reason prophylaxis not ordered: Treatment Not Indicated
--- NOTE | 2025-01-19 19:50 | PCM.POST.ANE ---
Anesthesia: Postop Eval I Current Vital Signs Temperature: 97.5 F Pulse Rate: 88 Blood Pressure: 124/84 Respiratory Rate: 16 Pulse Ox: 92 Oxygen Delivery Method: Room Air Assessment Airway patent: Yes Spontaneous unlabored respirations: Yes Mental status: Awake and Calm nausea: No Vomiting: No Anesthesia Complication: No Fluid Hydration Crystalloid volume administer (ml): 800 Total IV fluid infused: 800 Progress Note Anesthesia document: Postop Eval 1 completed: Yes
--- NOTE | 2025-01-19 19:52 | PCM.POSTANE2 ---
Anesthesia Postop Eval I Sum Postop Eval Completion status Anesthesia document: Postop Eval 1 completed: Yes Anesthesia Postop Eval I Summary Anesthesia Postop Eval I Summary: Anesthesia Postop Eval I: Assessment Summary Airway patent Yes 01/19/25 19:51 Spontaneous unlabored Yes 01/19/25 19:51 respirations Mental status Awake,Calm 01/19/25 19:51 nausea No 01/19/25 19:51 Vomiting No 01/19/25 19:51 Anesthesia Postop Eval I: Fluid Summary Crystalloid volume administer 800 01/19/25 19:51 (ml) Colloids volume administered ( ml) Blood Product volume administered (ml) Total IV fluid infused 800 01/19/25 19:51 Anesthesia Postop Eval I: Summary Notes Anesthesia Complication No 01/19/25 19:51 Anesthesia Complication Comment: Post-operative progress note Anesthesia: Postop Eval II Evaluation Mental status: Awake Pain Level: 0 nausea: No Vomiting: No
--- OUTSIDE RECORDS SUMMARY | 2025-01-22 02:00 | XMS RPT_ITS | CCD ---
Author Organization [facility] Inform ion Partnership [facility] Care Team Providers Care Plaster [employer] Stucco Worker Name Role Phone Keegan Diallo (Historical) Primary Care Prov ider Unavailable Mir Zamorano Referring Unavailable Mir Zamorano Attending Unavailable Mir Zamorano Primary Care Unavailable Mir Zamorano Referring Unavailable Mir Zamorano Attending Unavailable Mir aZmorano Primary Care Unavailable Jaun MARCELO, Dr. Hester Primary Care Provider Nikhil MARCELO, Dr. Hoffmann Emergency Provider Jaun MARCELO, Dr. Hester Primary Care Provider Nikhil MARCELO, Dr. Hoffmann Emergency Provider [phone] Rashmi MARCELO, Dr. Paolo De Luna Attending Provider Medications Current Medications Medication Drug Class(es) Dates Sig (Normalized) Sig (Original) acetaminophen 325 mg / oxyCODONE hydrochloride 5 mg oral tablet (1 source) Opioid Agonist Start: 01-19-2025 take 1 tablet by mouth every eight hours as needed for pain Oxycodone-Acetamin ophen (Percocet) 5-325 mg tablet Active 1 {tbl} PO Q8H as needed for pain 12 4 0 January 19, 2025 Acute appendicitis Unspecified acute appendicitis calcium carbonate 500 mg chewable tablet (3 sources) Start: 01-19-2025 take 1 tablet by mouth every four hours as needed for gastroesophageal reflux disease Calcium Carbonate (Antacid (Calcium Carbonate)) 200 mg calcium (500 mg) tablet,chewable Active 400 mg PO Q4H as needed for heartburn January 19, 2025 12:00am take 500 mg by mouth twice daily calcium carbonate (TUMS) 500 mg chew Take by mouth twice daily. 0 Active Comment on above: Take by mouth twice daily. Completed/Discontinued Medications Medication Drug Class(es) Dates Sig (Normalized) Sig (Original) [id number] 200 actuat albuterol 0.09 mg/actuat metered dose inhaler (1 source) beta2-Adrenergic Agonist Start: 07-13-2014 take 2 puff(s) by inhalation every four hours as needed for wheezing albuterol HFA (PROVENTIL HFA, VENTOLIN HFA) 90 mcg/actuation inhaler Indications: Bronchitis Inhale 2 Puffs as instructed every 4 hours as needed for Wheezing/Shortness of Breath. With spacer please. 1 Inhaler 0 07/13/2014 Active Comment on above: Inhale 2 Puffs as in structed every 4 hours as needed for Wheezing/Shortness of Breath. With spacer please. benzonatate 200 mg oral capsule (1 source) Non-narcotic Antitussive Start: 07-13-2014 take 1 capsule by mouth twice daily as needed for cough Benzonatate (TESSALON) 200 mg capsule Indications: Bronchitis Take 200 mg by mouth twice daily as needed for Cough. Swallow whole please. 10 capsule 0 07/13/2014 Active Comment on above: Take 200 mg by mouth twice daily as needed for Cough. Swallow whole please. diphenhydrAMINE hydrochloride 25 mg oral capsule (2 sources) Histamine-1 Receptor Antagonist Start: 07-17-2016 End: 01-19-2025 take 2 capsules by mouth every six hours Diphenhydramine Hcl (Benadryl) 25 MG capsule Discontinued 50 mg PO EVERY 6 HOURS 5 July 17, 2016 1:00am January 19, 2025 1:55pm famotidine 20 mg oral tablet (2 sources) Histamine-2 Receptor Antagonist Start: 07-17-2016 End: 01-19-2025 take 1 tablet by mouth twice daily Famotidine 20 MG tablet Discontinued 20 mg PO TWICE A DAY 10 July 17, 2016 1:00am January 19, 2025 1:54pm ibuprofen 200 mg oral tablet (1 source) Nonsteroidal Anti-inflammatory Drug take 1 tablet by mouth every six hours as needed ibuprofen (ADVIL) 200 mg tablet Take 200 mg by mouth every 6 hours as needed. 0 Active Comment on above: Take 200 mg by mouth every 6 hours as needed. predniSONE 20 mg oral tablet (2 sources) Start: 07-17-2016 End: 01-19-2025 take 3 tablets by mouth once daily Prednisone 20 MG tablet Discontinued 60 mg PO DAILY 15 July 17, 2016 1:00am January 19, 2025 1:55pm Problems Active Problems Problem Classification Problem Date Documented Da te Episodic/Chronic Abdominal pain (3 sources) Acute abdominal pain; Translations: [Unspecified abdominal pain] 01-19-2025 Episodic Appendicitis and other appendiceal conditions (3 sources) Acute appendicitis; Translations: [Unspecified acute appendicitis] 01-19-2025 Episodic Other screening for suspected conditions (not mental disorders or infectious disease) (1 source) Encounter for screening for malignant neoplasm of respiratory organs; Translations: [Encounter for screening for malignant neoplasm of respiratory organs] Onset: 05-15-2024 Episodic Past or Other Problems Problem Classification Problem Date Documented Da te Episodic/Chronic Other lower respiratory disease (1 source) Wheezing; Translations: [Wheezing] Onset: 12-14-2023 Episodic Results Test Name Value Interpretation Reference Range Facility Absolute lymphocyte countOrd ered By: Shun Tejeda on 01-19-2025 Lymphocytes Auto (Unsp spec) [#/Vol] 0.77 10*3/uL Low 0.83-4.51 [facility] Absolute neutrophil countOrd ered By: Shun Tejeda on 01-19-2025 Neutrophils (Bld) [#/Vol] 8.5 10*3/uL High 2.0-7.7 [facility] Anion gap in Serum or Plasma Ordered By: Shun Tejeda on 01-19-2025 Anion gap [Moles/Vol] 12 mmol/L 5-15 [facility] Automated lymphocyte count a s percentage of total leukocytesOrdered By: Shun Tejeda on 01-19-2025 Lymphocytes/100 WBC Auto (Unsp spec) 7.3 % Low 19-41 [facility] BUN/creatinine ratioOrdered By: Shun Tejeda on 01-19-2025 Urea nitrogen/Creatinine [Mass ratio] 5.6 mg/mg Low 10-20 [facility] Basophil percentageOrdered B y: Shun Tejeda on 01-19-2025 Basophils/100 WBC (Bld) 0.2 % 0-1 [facility] Bilirubin Test strip Ql (U)O rdered By: Shun Tejeda on 01-19-2025 Bilirubin Ql (U) Negative Negative [facility] Bilirubin, totalOrdered By: Shun Tejeda on 01-19-2025 Bilirubin [Mass/Vol] 1.78 mg/dL High 0.00-1.30 [facility] Carbon dioxide, total [Moles /volume] in Central venous bloodOrdered By: Shun Tejeda on 01-19-2025 CO2 [Moles/Vol] 23.1 mmol/L 21.0-32.0 [facility] Chloride assayOrdered By: Andrea Tejeda on 01-19-2025 Chloride [Moles/Vol] 98 mmol/L 98-108 [facility] Eosinophil percentageOrdered By: Shun Tejeda on 01-19-2025 Eosinophils/100 WBC (Bld) 0.9 % 0-5 [facility] Erythrocyte distribution wid th ratioOrdered By: Shun Tejeda on 01-19-2025 Erythrocyte distribution width (RBC) [Ratio] 12.4 % 11.6-14.6 [facility] Erythrocyte distribution wid th standard deviationOrdered By: Shun Tejeda on 01-19-2025 Erythrocyte distribution width (RBC) [Ratio] 42.8 fl 35.1-43.9 [facility] Glomerular filtration rate ( GFR) estimation/1.73 sq m using serum, plasma, or whole bOrdered By: Shun Tejeda on 01-19-2025 GFR/1.73 sq M.predicted among non-blacks MDRD (S/P/Bld) [Vol rate/Area] 96 mL/min/{1.73_m2} >60 [facility] Comment on above: mL/min/1.73m2 CKD-EP I Creatinine Equation (2020) Hematocrit Auto (Bld) [Volum e fraction]Ordered By: Shun Tejeda on 01-19-2025 Hematocrit (Bld) [Volume fraction] 41.2 % 40-54 [facility] Hemoglobin measurementOrdere d By: Shun Tejeda on 01-19-2025 Hemoglobin (Bld) [Mass/Vol] 14.6 g/dL 13.0-16.5 [facility] Immature granulocytes/100 WB C Auto (Bld)Ordered By: Shun Tejeda on 01-19-2025 Immature granulocytes/100 WBC (Bld) 0.400 % 0.0-0.9 [facility] Comment on above: IG% - Immature Granu locytes (promyelocytes, myelocytes and metamyelocytes) > 1% indicates that a LEFT SHIFT is Present. Ketones Test strip Ql (U)Ord ered By: Shun Tejeda on 01-19-2025 Ketones Ql (U) 15 mg/dl High Negative [facility] Laboratory - Chemistry and C hemistry - challengeOrdered By: Shun Tejeda on 01-19-2025 AST [Catalytic activity/Vol] 14 U/L <38 [facility] Lipase measurementOrdered By : Shun Tejeda on 01-19-2025 Lipase [Catalytic activity/Vol] 10 U/L Low 13-75 [facility] Comment on above: Please note:LIPASE r evised reference range effective 22. New Lipase methodology. Expected to produce lower values than the previous assay method. NEW Reference Range: 13 - 75 U/L MCV (mean corpuscular volume ) determinationOrdered By: Shun Tejeda on 01-19-2025 MCV (RBC) [Entitic vol] 93.2 fL 80-94 [facility] Mean corpuscular hemoglobin (MCH) determinationOrdered By: Shun Tejeda on 01-19-2025 MCH (RBC) [Entitic mass] 33.0 pg High 27.0-32.0 [facility] Mean corpuscular hemoglobin concentration (MCHC) determinationOrdered By: Shun Tejeda on 01-19-2025 MCHC (RBC) [Mass/Vol] 35.4 g/dL 32-36 [facility] Mean platelet volume determi nationOrdered By: Shun Tejeda on 01-19-2025 Platelet mean volume (Bld) [Entitic vol] 9.5 fL 6.2-12.0 [facility] Microscopic analysis of urin e for red blood cells (RBC)Ordered By: Shun Tejeda on 01-19-2025 Microscopic analysis of urine for red blood cells (RBC) 0 SEEN /hpf 0-5 [facility] Monocyte percentageOrdered B y: Shun Tejeda on 01-19-2025 Monocytes/100 WBC (Bld) 10.8 % High 0-10 [facility] Mucus LM Ql (Urine sed)Order ed By: Shun Tejeda on 01-19-2025 Mucus Ql (Urine sed) 0 SEEN /hpf [facility] Neutrophil percentageOrdered By: Shun Tejeda on 01-19-2025 Neutrophils/100 WBC (Bld) 80.4 % High 47-70 [facility] Nitrite Test strip Ql (U)Ord ered By: Shun Tejeda on 01-19-2025 Nitrite Ql (U) Negative Negative [facility] Nucleated red blood cell per centageOrdered By: Shun Tejeda on 01-19-2025 Nucleated RBC/100 WBC (Bld) [Ratio] 0 % 0-5 [facility] Platelet countOrdered By: Andrea Tejeda on 01-19-2025 Platelets (Bld) [#/Vol] 221 10*3/uL 150-450 [facility] Potassium measurement (mass/ volume)Ordered By: Shun Tejeda on 01-19-2025 Potassium (Unsp spec) [Mass/Vol] 3.7 mmol/L 3.3-5.1 [facility] Protein Test strip Ql (U)Ord ered By: Shun Tejeda on 01-19-2025 Protein Ql (U) 15 mg/dl High Negative [facility] RBC Auto (Bld) [#/Vol]Ordere d By: Shun Tejeda on 01-19-2025 RBC (Bld) [#/Vol] 4.42 10*6/uL Low 4.6-6.2 [facility] Serum creatinine measurement (mass/volume)Ordered By: Shun Tejeda on 01-19-2025 Creatinine [Mass/Vol] 0.83 mg/dL 0.70-1.20 [facility] Serum globulin measurementOr dered By: Shun Tejeda on 01-19-2025 Globulin (S) [Mass/Vol] -3.5000 g/dL Low 2.2-4.2 [facility] Serum glucose measurement (m ass/volume)Ordered By: Shun Tejeda on 01-19-2025 Glucose [Mass/Vol] 74 mg/dL 70-99 [facility] Serum or plasma alanine alba otransferase (ALT) measurementOrdered By: Shun Tejeda on 01-19-2025 ALT [Catalytic activity/Vol] 16 U/L <47 [facility] Serum or plasma albumin huang urement (mass/volume)Ordered By: Shun Tejeda on 01-19-2025 Albumin [Mass/Vol] 4.1 g/dL 3.4-4.8 [facility] Serum or plasma albumin/glob ulin mass ratioOrdered By: Shun Tejeda on 01-19-2025 Albumin/Globulin [Mass ratio] -1.2000 {ratio} Low 0.9-2.4 [facility] Serum or plasma alkaline karen sphatase measurementOrdered By: Shun Tejeda on 01-19-2025 ALP [Catalytic activity/Vol] 61 U/L 40-129 [facility] Serum or plasma calcium huang urement (mass/volume)Ordered By: Shun Tejeda on 01-19-2025 Calcium [Mass/Vol] 8.6 mg/dL 7.6-11.0 [facility] Serum or plasma urea nitroge n measurement (mass/volume)Ordered By: Shun Tejeda on 01-19-2025 Urea nitrogen [Mass/Vol] 5 mg/dL 4-19 [facility] Sodium levelOrdered By: Shun Tejeda on 01-19-2025 Sodium [Moles/Vol] 133 mmol/L 133-145 [facility] Squamous epithelial cells de tection in urine sediment by light microscopyOrdered By: Shun Tejeda on 01-19-2025 Epithelial cells.squamous LM Ql (Urine sed) 0 SEEN /hpf 0-5 [facility] Total proteinOrdered By: Brayan Tejeda on 01-19-2025 Protein [Mass/Vol] 6.5 g/dL 5.9-8.4 [facility] Comment on above: Previous reported re sult: 0.6 g/dLEdited by: BOSTON on 01/19/25:1530 AMENDED REPORT 01/19/25 1530 T PROT previously reported as: 0.6 L g/dL Urine clarityOrdered By: Brayan Tejeda on 01-19-2025 Clarity (U) Clear Clear [facility] Urine color determinationOrd ered By: Shun Tejeda on 01-19-2025 Color (U) Straw Yellow [facility] Urine glucose detectionOrder ed By: Shun Tejeda on 01-19-2025 Glucose Ql (U) Normal mg/dl Normal [facility] Urine leukocyte esterase det ection by dipstickOrdered By: Shun Tejeda on 01-19-2025 Leukocyte esterase Test strip Ql (U) Negative Negative [facility] Urine pHOrdered By: Shun bee on 01-19-2025 pH (U) 6.5 [pH] 5.0 - 8.0 [facility] Urine sediment bacteria coun t by microscopy (number/high power field)Ordered By: Shun Tejeda on 01-19-2025 Bacteria LM.HPF (Urine sed) [#/Area] 0 /[HPF] None Seen [facility] Urine specific gravity measu rementOrdered By: Shun Tejeda on 01-19-2025 Specific gravity (U) [Rel density] 1.010 1.002-1.030 [facility] Urine urobilinogen measureme ntOrdered By: Shun Tejeda on 01-19-2025 Urobilinogen Ql (U) Normal mg/dl Normal [facility] White blood cell (WBC) count Ordered By: Shun Tejeda on 01-19-2025 WBC (Bld) [#/Vol] 10.6 10*3/uL 4.4-11.0 [facility] White blood cell countOrdere d By: Shun Tejeda on 01-19-2025 White blood cell count 0-5 SEEN /hpf 0-5 [facility] Low Dose CT Lung Screeningon 04-01-[address] Lung Screening [facility] [address] [place] [id number] Lung Screening MR#: [id number] Acct: [id number] Name: MELISSA YOUNG Rep #: [id number] : 1955 M 68 From: Beny cain MD PCP: Dr. Mir Zamorano MD Status: [facility] Study: Low Dose CT Lung Screening Date of Exam: 04/01 Exam# [id number] Ordering Dr: Mir Zamorano -[id number] STUDY: LOW DOSE CT LUNG CANCER SCREENING REASON FOR EXAM: Male, 68 years old. smoker. Patient smokes 1 pack per day for 40 years. RADIATION DOSAGE (If Supplied By Facility): CTDIvol = ( 3.02 ) mGy, DLP = ( 103.07 ) mGycm TECHNIQUE: No contrast was administered. Low dose technique was utilized (average mAS-38 and kVp 120). 1.25 mm axial source images with a slice interval of 1.25-mm were reconstructed in lung windows. 2.5 mm axial source images with a slice interval of 2.5-mm were reconstructed in lung windows. 5.0 mm axial source images with a slice interval of 5.0-mm were reconstructed in soft tissue windows. COMPARISON: Comparison is made with prior study dated April 24, 2015. NODULES: No suspicious nodule is seen. Emphysema: No significant emphysematous changes present. Endobronchial lesion: None Aorta: Mild atherosclerotic plaque formation of the aortic arch. CORONARY ARTERIES: Coronary artery calcification is seen. Heart: Unremarkable Pulmonary artery: Unremarkable Mediastinal nodes: Unremarkable Other chest and abdominal findings: CT/Low Dose CT Lung Screening IMPRESSION: Lung-RADS category 2 - Continue annual screening with LDCT in 12 months. IMPORTANT NOTES FOR USE: ACR Lung-RADS Version 1.1 Assessment Categories Release Date: 2018 Category: Coded 0-4 bases on nodule(s) with highest degree of suspicion. Negative screen is defined as categories 1 and 2; a positive screen is defined as categories 3 and 4. Category 3 and 4A nodules that are unchanged on interval CT should be coded as category 2, and individuals returned to screening in 12 months. Category 4X: Category 3 or 4 nodules with additional imaging findings that increase the suspicion of lung cancer, such as spiculation, GGN that doubles in size in 1 year, enlarged lymph notes, etc. Category Modifiers: S (significant finding unrelated to lung cancer) Electronically Signed: Beny Mendiola MD at 11:10 EDT Reading Location ID and State: 3 [facility] , Service support , CC: Dr. Mir Zamorano MD Mumps Developer: Signed Normal [facility] CBC W/Diff, Automatedon 11-14 Absolute Lymph 1.18 X10 3/uL Normal 0.83-4.51 [facility] Comment on above: Order Comment: Order Date: 12/06/23 Order Info: [id number] - CBCD Order Info: [id number] - SED Performed By: #### L 501.9520, L100.0100, L509.6000, L101.9900, L500.4050, L503.0105, L506.1000, L503.6150, L503.6550, L500.4100, L509.3000, L501.9910 #### [facility] [address] [place], [place], [phone]) Absolute Neut 4.0 X10 3/uL Normal 2.0-7.7 [facility] Comment on above: Order Comment: Order Date: 12/06/23 Order Info: 018- - CBCD Order Info: [id number] - SED Performed By: #### L 501.9520, L100.0100, L509.6000, L101.9900, L500.4050, L503.0105, L506.1000, L503.6150, L503.6550, L500.4100, L509.3000, L501.9910 #### [facility] [address] [place], [place], [phone] ([phone]) Basophils/100 WBC (Bld) 0.5 % Normal 0-1 [facility] Comment on above: Order Comment: Order Date: 12/06/23 Order Info: [id number] - CBCD Order Info: [id number] - SED Performed By: #### L 501.9520, L100.0100, L509.6000, L101.9900, L500.4050, L503.0105, L506.1000, L503.6150, L503.6550, L500.4100, L509.3000, L501.9910 #### [facility] [address] [place], [place], [phone] Eosinophils/100 WBC (Bld) 2.7 % Normal 0-5 [facility] Comment on above: Order Comment: Order Date: 12/06/23 Order Info: 018- - CBCD Order Info: [id number] - SED Performed By: #### L 501.9520, L100.0100, L509.6000, L101.9900, L500.4050, L503.0105, L506.1000, L503.6150, L503.6550, L500.4100, L509.3000, L501.9910 #### [facility] [address] [place], [place], [phone] Erythrocyte distribution width (RBC) [Ratio] 12.5 % Normal 11.6-14.6 [facility] Comment on above: Order Comment: Order Date: 12/06/23 Order Info: 018- - CBCD Order Info: [id number] - SED Performed By: #### L 501.9520, L100.0100, L509.6000, L101.9900, L500.4050, L503.0105, L506.1000, L503.6150, L503.6550, L500.4100, L509.3000, L501.9910 #### [facility] [address] [facility] [place], [address] Hematocrit (Bld) [Volume fraction] 46.9 % Normal 40-54 [facility] Comment on above: Order Comment: Order Date: 12/06/23 Order Info: [id number] - CBCD Order Info: [id number] - SED Performed By: #### L 501.9520, L100.0100, L509.6000, L101.9900, L500.4050, L503.0105, L506.1000, L503.6150, L503.6550, L500.4100, L509.3000, L501.9910 #### [facility] [address] [facility] [place], [address] Hemoglobin (Bld) [Mass/Vol] 15.8 g/dL Normal 13.0-16.5 [facility] Comment on above: Order Comment: Order Date: 12/06/23 Order Info: [id number] - CBCD Order Info: [id number] - SED Performed By: #### L 501.9520, L100.0100, L509.6000, L101.9900, L500.4050, L503.0105, L506.1000, L503.6150, L503.6550, L500.4100, L509.3000, L501.9910 #### [facility] [address] [place], [address] IG% 0.300 Normal 0.0-0.9 [facility] Comment on above: Order Comment: Order Date: 12/06/23 Order Info: [id number] - CBCD Order Info: [id number] - SED Result Comment: IG% - Immature Granulocytes (promyelocytes, myelocytes and metamyelocytes) > 1% indicates that a LEFT SHIFT is Present. Performed By: #### L 501.9520, L100.0100, L509.6000, L101.9900, L500.4050, L503.0105, L506.1000, L503.6150, L503.6550, L500.4100, L509.3000, L501.9910 #### [facility] [address] [facility] [place], [address] Lymphocytes/100 WBC (Bld) 19.8 % Normal 19-41 [facility] Comment on above: Order Comment: Order Date: 12/06/23 Order Info: [id number] - CBCD Order Info: [id number] - SED Performed By: #### L 501.9520, L100.0100, L509.6000, L101.9900, L500.4050, L503.0105, L506.1000, L503.6150, L503.6550, L500.4100, L509.3000, L501.9910 #### [facility] [address] [facility] [place], [place], [phone] MCH (RBC) [Entitic mass] 31.6 pg Normal 27.0-32.0 [facility] Comment on above: Order Comment: Order Date: 12/06/23 Order Info: [id number] - CBCD Order Info: [id number] - SED Performed By: #### L 501.9520, L100.0100, L509.6000, L101.9900, L500.4050, L503.0105, L506.1000, L503.6150, L503.6550, L500.4100, L509.3000, L501.9910 #### [facility] [address] [place], [place], [phone] MCHC (RBC) [Mass/Vol] 33.7 g/dL Normal 32-36 [facility] Comment on above: Order Comment: Order Date: 12/06/23 Order Info: [id number] - CBCD Order Info: [id number] - SED Performed By: #### L 501.9520, L100.0100, L509.6000, L101.9900, L500.4050, L503.0105, L506.1000, L503.6150, L503.6550, L500.4100, L509.3000, L501.9910 #### [facility] [address] [facility] [place], [place], [phone] MCV (RBC) [Entitic vol] 93.8 fL Normal 80-94 [facility] Comment on above: Order Comment: Order Date: 12/06/23 Order Info: [id number] - CBCD Order Info: [id number] - SED Performed By: #### L 501.9520, L100.0100, L509.6000, L101.9900, L500.4050, L503.0105, L506.1000, L503.6150, L503.6550, L500.4100, L509.3000, L501.9910 #### [facility] [address] [facility] [place], [place], [phone] [phone] Monocytes/100 WBC (Bld) 10.1 % High 0-10 [facility] Comment on above: Order Comment: Order Date: 12/06/23 Order Info: [id number] - CBCD Order Info: [id number] - SED Performed By: #### L 501.9520, L100.0100, L509.6000, L101.9900, L500.4050, L503.0105, L506.1000, L503.6150, L503.6550, L500.4100, L509.3000, L501.9910 #### [facility] [address] [place], [place], [phone] Neutrophils/100 WBC (Bld) 66.6 % Normal 47-70 [facility] Comment on above: Order Comment: Order Date: 12/06/23 Order Info: 0184- - CBCD Order Info: [id number] - SED Performed By: #### L 501.9520, L100.0100, L509.6000, L101.9900, L500.4050, L503.0105, L506.1000, L503.6150, L503.6550, L500.4100, L509.3000, L501.9910 #### [facility] [address] [place], [place], [phone] Nucleated RBC (Bld) [#/Vol] 0 10*3/uL Normal 0-5 [facility] Comment on above: Order Comment: Order Date: 12/06/23 Order Info: [id number] - CBCD Order Info: [id number] - SED Performed By: #### L 501.9520, L100.0100, L509.6000, L101.9900, L500.4050, L503.0105, L506.1000, L503.6150, L503.6550, L500.4100, L509.3000, L501.9910 #### [facility] [address] [place], [place], [phone] Platelet mean volume (Bld) [Entitic vol] 9.9 fL Normal 6.2-12.0 [facility] Comment on above: Order Comment: Order Date: 12/06/23 Order Info: [id number]- - CBCD Order Info: [id number] - SED Performed By: #### L 501.9520, L100.0100, L509.6000, L101.9900, L500.4050, L503.0105, L506.1000, L503.6150, L503.6550, L500.4100, L509.3000, L501.9910 #### [facility] [address] [place], [place], [address] Platelets (Bld) [#/Vol] 268 10*3/uL Normal 150-450 [facility] Comment on above: Order Comment: Order Date: 12/06/23 Order Info: [id number] - CBCD Order Info: [id number] - SED Performed By: #### L 501.9520, L100.0100, L509.6000, L101.9900, L500.4050, L503.0105, L506.1000, L503.6150, L503.6550, L500.4100, L509.3000, L501.9910 #### [facility] [address] [facility] [place], [place], [phone] RBC (Bld) [#/Vol] 5.00 10*6/uL Normal 4.6-6.2 [facility] Comment on above: Order Comment: Order Date: 12/06/23 Order Info: [id number] - CBCD Order Info: [id number] - SED Performed By: #### L 501.9520, L100.0100, L509.6000, L101.9900, L500.4050, L503.0105, L506.1000, L503.6150, L503.6550, L500.4100, L509.3000, L501.9910 #### [facility] [address] [place], [place], [phone] RDW SD 42.8 fl Normal 35.1-43.9 [facility] Comment on above: Order Comment: Order Date: 12/06/23 Order Info: [id number]- - CBCD Order Info: [id number] - SED Performed By: #### L 501.9520, L100.0100, L509.6000, L101.9900, L500.4050, L503.0105, L506.1000, L503.6150, L503.6550, L500.4100, L509.3000, L501.9910 #### [facility] [facility] [address] [place], [place], [address] WBC (Bld) [#/Vol] 6.0 10*3/uL Normal 4.4-11.0 [facility] Comment on above: Order Comment: Order Date: 12/06/23 Order Info: 0184-1 - CBCD Order Info: 61775-9 - SED Performed By: #### L 501.9520, L100.0100, L509.6000, L101.9900, L500.4050, L503.0105, L506.1000, L503.6150, L503.6550, L500.4100, L509.3000, L501.9910 #### [facility] [address] [place], [place], [address] CORTISOL SERUMon 12-07-2023 CORTISOL 16.00 ug/dL Normal 3.44-22.45 [facility] Comment on above: Order Comment: Order Date: 12/06/23 Order Info: 0184- - CBCD Order Info: 24609-8 - SED Result Comment: Adul t (AM) 5.27 - 22.45 ug/dL Adult (PM) 3.44 - 16.76 ug/dL Please note revised CORTISOL reference range effective 2019. Performed By: #### L 501.9520, L100.0100, L509.6000, L101.9900, L500.4050, L503.0105, L506.1000, L503.6150, L503.6550, L500.4100, L509.3000, L501.9910 #### [facility] [address] [place], [place], [address] Chest PA and Lateralon 12-06 Chest PA and Lateral [facility] [address] [place], [place] [address] Chest PA and Lateral MR#: [id number] Acct: [id number] Name: MELISSA YOUNG Rep #: [id number] : 1955 M 68 From: Jeff Greer MD PCP: Dr. Mir Zamorano MD Status: REG CLI Study: Chest PA and Lateral Date of Exam: 12/07/23 Exam# [id number] Ordering Dr: Mir Zamorano -[id number] STUDY: X-RAY CHEST REASON FOR EXAM: Male, 68 years old. cough, wheeze TECHNIQUE: PA and lateral views of the chest. COMPARISON: 2016 FINDINGS: The lungs are clear and expanded. There is no demonstrated pleural abnormality. Normal size heart. Normal mediastinum and johnna. Normal visualized pulmonary arteries. Normal visualized aortic arch and descending thoracic aorta. Normal visualized thoracic spine. Normal visualized ribs, clavicles, and shoulders. There is no demonstrated abnormality of the visualized soft tissue structures of the upper abdomen. RAD/Chest PA and Lateral IMPRESSION: No acute pulmonary process Electronically Signed: Pedro Greer MD at 11:46 EDT , CC: Dr. Mir Zamorano MD Mumps Developer: Signed Normal [facility] Metabolic Prof [facility] 12-07-2023 Albumin [Mass/Vol] 3.8 g/dL Normal 3.2-5.0 [facility] Comment on above: Order Comment: Order Date: 12/06/23 Order Info: 0786-1 - CMP Order Info: 58390-3 - LIPID Order Info: 2324-2 - GGTP Order Info: 3016-3 - TSH Order Info: 2857-1 - PSA Order Info: 2498-4 - FE Order Info: 2276-4 - FREDDIE Performed By: #### L 501.9520, L100.0100, L509.6000, L101.9900, L500.4050, L503.0105, L506.1000, L503.6150, L503.6550, L500.4100, L509.3000, L501.9910 #### [facility] [address] [place], [place], [address] Albumin/Globulin [Mass ratio] 1.1 {ratio} Normal 0.9-2.4 [facility] Comment on above: Order Comment: Order Date: 12/06/23 Order Info: 0786- - CMP Order Info: - LIPID Order Info: 2 - GGTP Order Info: 3015-09 - TSH Order Info: 2856-07 - PSA Order Info: 2497-10 - FE Order Info: 2275-10 - FREDDIE Performed By: #### L 501.9520, L100.0100, L509.6000, L101.9900, L500.4050, L503.0105, L506.1000, L503.6150, L503.6550, L500.4100, L509.3000, L501.9910 #### [facility] [address] [place], [place], [address] [phone] ALK P 56 U/L Normal 45-117 [facility] Comment on above: Order Comment: Order Date: 12/06/23 Order Info: 0786- - CMP Order Info: 61471-1 - LIPID Order Info: 2 - GGTP Order Info: 3 - TSH Order Info: 2856-07 - PSA Order Info: 2497-10 - FE Order Info: 2275-10 - FREDDIE Performed By: #### L 501.9520, L100.0100, L509.6000, L101.9900, L500.4050, L503.0105, L506.1000, L503.6150, L503.6550, L500.4100, L509.3000, L501.9910 #### [facility] [address] [place], [place], [address] ALT [Catalytic activity/Vol] 25 U/L Normal 16-61 [facility] Comment on above: Order Comment: Order Date: 12/06/23 Order Info: 785- - CMP Order Info: - LIPID Order Info: 2323-08 - GGTP Order Info: 3015-09 - TSH Order Info: 2856-07 - PSA Order Info: 2497-10 FE Order Info: 2275-10 - FREDDIE Performed By: #### L 501.9520, L100.0100, L509.6000, L101.9900, L500.4050, L503.0105, L506.1000, L503.6150, L503.6550, L500.4100, L509.3000, L501.9910 #### [facility] [address] [place], [address] AST [Catalytic activity/Vol] 15 U/L Normal 15-37 [facility] Comment on above: Order Comment: Order Date: 12/06/23 Order Info: 785-07 - CMP Order Info: - LIPID Order Info: 2323-08 - GGTP Order Info: 3015-09 - TSH Order Info: 2856-07 - PSA Order Info: 2497-10 FE Order Info: 2275-10 - FREDDIE Performed By: #### L 501.9520, L100.0100, L509.6000, L101.9900, L500.4050, L503.0105, L506.1000, L503.6150, L503.6550, L500.4100, L509.3000, L501.9910 #### [facility] [address] [place], [place], [address] Bilirubin [Mass/Vol] 1.30 mg/dL High 0.20-1.00 [facility] Comment on above: Order Comment: Order Date: 12/06/23 Order Info: 785-07 - CMP Order Info: - LIPID Order Info: 2 - GGTP Order Info: 3015-09 - TSH Order Info: 2856-07 - PSA Order Info: 2497-10 - FE Order Info: 2275-10 - FREDDIE Result Comment: For patients on eltrombopag therapy, use of Dimension Drummonds TBIL is not recommended. Performed By: #### L 501.9520, L100.0100, L509.6000, L101.9900, L500.4050, L503.0105, L506.1000, L503.6150, L503.6550, L500.4100, L509.3000, L501.9910 #### [facility] [address] [place], [place], [address] BUN/CRE 11.9 RATIO Normal 10-20 [facility] Comment on above: Order Comment: Order Date: 12/06/23 Order Info: 07- - CMP Order Info: - LIPID Order Info: 2323-08 - GGTP Order Info: 3015-09 - TSH Order Info: 2856-07 - PSA Order Info: 2497-10 FE Order Info: 2275-10 - FREDDIE Performed By: #### L 501.9520, L100.0100, L509.6000, L101.9900, L500.4050, L503.0105, L506.1000, L503.6150, L503.6550, L500.4100, L509.3000, L501.9910 #### [facility] [address] [place], [place], [address] CA,Total 9.2 mg/dL Normal 8.5-10.1 [facility] Comment on above: Order Comment: Order Date: 12/06/23 Order Info: 07 - CMP Order Info: - LIPID Order Info: 2 - GGTP Order Info: 3015-09 - TSH Order Info: 2856-07 - PSA Order Info: 2497-10 - FE Order Info: 2275-10 - FREDDIE Performed By: #### L 501.9520, L100.0100, L509.6000, L101.9900, L500.4050, L503.0105, L506.1000, L503.6150, L503.6550, L500.4100, L509.3000, L501.9910 #### [facility] [address] [place], [place], [address] Chloride [Moles/Vol] 104 mmol/L Normal 98-107 [facility] Comment on above: Order Comment: Order Date: 12/06/23 Order Info: 86-1 - CMP Order Info: 46559-9 - LIPID Order Info: 2323-2 - GGTP Order Info: 3 - TSH Order Info: 2856-07 - PSA Order Info: 2497-10 - FE Order Info: 2275-10 - FREDDIE Performed By: #### L 501.9520, L100.0100, L509.6000, L101.9900, L500.4050, L503.0105, L506.1000, L503.6150, L503.6550, L500.4100, L509.3000, L501.9910 #### [facility] [address] [place], [place], [address] [phone] CO2 [Moles/Vol] 26.0 mmol/L Normal 21.0-32.0 [facility] Comment on above: Order Comment: Order Date: 12/06/23 Order Info: 785-07 - CMP Order Info: - LIPID Order Info: 2 - GGTP Order Info: 3015-09 - TSH Order Info: 2856-07 - PSA Order Info: 2497-10 FE Order Info: 2275-10 - FREDDIE Performed By: #### L 501.9520, L100.0100, L509.6000, L101.9900, L500.4050, L503.0105, L506.1000, L503.6150, L503.6550, L500.4100, L509.3000, L501.9910 #### [facility] [address] [place], [place], [address] [phone] Creatinine [Mass/Vol] 0.93 mg/dL Normal 0.70-1.30 [facility] Comment on above: Order Comment: Order Date: 12/06/23 Order Info: 785-1 - CMP Order Info: 42305-6 - LIPID Order Info: 2324-2 - GGTP Order Info: 3015-09 - TSH Order Info: 2856-07 - PSA Order Info: 2497-10 Order Info: 2275-10 - FREDDIE Result Comment: The validity of the calculated GFR GFRAA in patients over 70 years has not been determined. Clinical correlation is essential. Performed By: #### L 501.9520, L100.0100, L509.6000, L101.9900, L500.4050, L503.0105, L506.1000, L503.6150, L503.6550, L500.4100, L509.3000, L501.9910 #### [facility] [address] [place], [address] EST GFR - AA 105 mL/min Normal >60 [facility] Comment on above: Order Comment: Order Date: 12/06/23 Order Info: 07- - CMP Order Info: - LIPID Order Info: 2323-08 - GGTP Order Info: 3015-09 - TSH Order Info: 2856-07 - PSA Order Info: 2497-10 Order Info: 2275-10 - FREDDIE Result Comment: Afri can Russian GFR Calc Performed By: #### L 501.9520, L100.0100, L509.6000, L101.9900, L500.4050, L503.0105, L506.1000, L503.6150, L503.6550, L500.4100, L509.3000, L501.9910 #### [facility] [address] [place], [address] GAP 6 Normal 5-15 [facility] Comment on above: Order Comment: Order Date: 12/06/23 Order Info: 0786- - CMP Order Info: - LIPID Order Info: 2 - GGTP Order Info: 3015-09 - TSH Order Info: 2856-07 - PSA Order Info: 2497-10 Order Info: 2275-10 - FREDDIE Performed By: #### L 501.9520, L100.0100, L509.6000, L101.9900, L500.4050, L503.0105, L506.1000, L503.6150, L503.6550, L500.4100, L509.3000, L501.9910 #### [facility] [address] [place], [address] GFR/1.73 sq M.predicted among non-blacks MDRD (S/P/Bld) [Vol rate/Area] 87 mL/min/{1.73_m2} Normal >60 [facility] Comment on above: Order Comment: Order Date: 12/06/23 Order Info: 785-07 - CMP Order Info: - LIPID Order Info: 2323-08 - GGTP Order Info: 3015-09 - TSH Order Info: 2856-07 - PSA Order Info: 2497-10 Order Info: 2275-10 - FREDDIE Result Comment: Non- GFR Calc Performed By: #### L 501.9520, L100.0100, L509.6000, L101.9900, L500.4050, L503.0105, L506.1000, L503.6150, L503.6550, L500.4100, L509.3000, L501.9910 #### [facility] [address] [place], [place], [address] Globulin (S) [Mass/Vol] 3.4 g/dL Normal 2.2-4.2 [facility] Comment on above: Order Comment: Order Date: 12/06/23 Order Info: 785-07 - CMP Order Info: - LIPID Order Info: 2323-08 - GGTP Order Info: 3015-09 - TSH Order Info: 2856-07 - PSA Order Info: 2497-10 Order Info: 2275-10 - FREDDIE Performed By: #### L 501.9520, L100.0100, L509.6000, L101.9900, L500.4050, L503.0105, L506.1000, L503.6150, L503.6550, L500.4100, L509.3000, L501.9910 #### [facility] [address] [place], [address] Glucose [Mass/Vol] 116 mg/dL High 74-106 [facility] Comment on above: Order Comment: Order Date: 12/06/23 Order Info: 0786- - CMP Order Info: 00130-9 - LIPID Order Info: 2 - GGTP Order Info: 3015-09 - TSH Order Info: 2856-07 - PSA Order Info: 2497-10 Order Info: 2275-10 - FREDDIE Result Comment: Fast ing Glucose result from 100 to 125 mg/dL suggests IMPAIRED HOMEOSTASIS per A.D.A. criteria. Performed By: #### L 501.9520, L100.0100, L509.6000, L101.9900, L500.4050, L503.0105, L506.1000, L503.6150, L503.6550, L500.4100, L509.3000, L501.9910 #### [facility] [address] [place], [address] Potassium [Moles/Vol] 4.2 mmol/L Normal 3.5-5.1 [facility] Comment on above: Order Comment: Order Date: 12/06/23 Order Info: 0786- - CMP Order Info: 69759-2 - LIPID Order Info: 2 - GGTP Order Info: 3015-09 - TSH Order Info: 2856-07 - PSA Order Info: 2497-10 Order Info: 2275-10 - FREDDIE Performed By: #### L 501.9520, L100.0100, L509.6000, L101.9900, L500.4050, L503.0105, L506.1000, L503.6150, L503.6550, L500.4100, L509.3000, L501.9910 #### [facility] [address] [place], [address] Sodium [Moles/Vol] 136 mmol/L Normal 136-145 [facility] Comment on above: Order Comment: Order Date: 12/06/23 Order Info: 785-07 - CMP Order Info: - LIPID Order Info: 2323-08 - GGTP Order Info: 3015-09 - TSH Order Info: 2856-07 - PSA Order Info: 2497-10 FE Order Info: 2275-10 - FREDDIE Performed By: #### L 501.9520, L100.0100, L509.6000, L101.9900, L500.4050, L503.0105, L506.1000, L503.6150, L503.6550, L500.4100, L509.3000, L501.9910 #### [facility] [address] [place], [address] T PROT 7.2 g/dL Normal 6.4-8.2 [facility] Comment on above: Order Comment: Order Date: 12/06/23 Order Info: 785-07 - CMP Order Info: - LIPID Order Info: 2323-08 - GGTP Order Info: 3015-09 - TSH Order Info: 2856-07 - PSA Order Info: 2497-10 FE Order Info: 2275-10 - FREDDIE Performed By: #### L 501.9520, L100.0100, L509.6000, L101.9900, L500.4050, L503.0105, L506.1000, L503.6150, L503.6550, L500.4100, L509.3000, L501.9910 #### [facility] [address] [place], [place], [address] Urea nitrogen [Mass/Vol] 11 mg/dL Normal 7-18 [facility] Comment on above: Order Comment: Order Date: 12/06/23 Order Info: 785-07 - CMP Order Info: - LIPID Order Info: 2 - GGTP Order Info: 3015-09 - TSH Order Info: 2856-07 - PSA Order Info: 2497-10 FE Order Info: 2275-10 - FREDDIE Performed By: #### L 501.9520, L100.0100, L509.6000, L101.9900, L500.4050, L503.0105, L506.1000, L503.6150, L503.6550, L500.4100, L509.3000, L501.9910 #### [facility] [address] [place], [place], [address] Erythrocyte Sed Rateon 12-06 SED RATE 1 mm/hr Normal 0-20 [facility] Comment on above: Order Comment: Order Date: 12/06/23 Order Info: 0184-1 - CBCD Order Info: 09938-0 - SED Performed By: #### L 501.9520, L100.0100, L509.6000, L101.9900, L500.4050, L503.0105, L506.1000, L503.6150, L503.6550, L500.4100, L509.3000, L501.9910 #### [facility] [address] [place], [place], [id number] Ferritinon 12-07-2023 Ferritin [Mass/Vol] 67 ng/mL Normal 26-388 [facility] Comment on above: Order Comment: Order Date: 12/06/23 Order Info: 0786-1 - CMP Order Info: 39704-8 - LIPID Order Info: 2324-2 - GGTP Order Info: 3016-3 - TSH Order Info: 2857-1 - PSA Order Info: 2498-4 - FE Order Info: 2276-4 - FREDDIE Performed By: #### L 501.9520, L100.0100, L509.6000, L101.9900, L500.4050, L503.0105, L506.1000, L503.6150, L503.6550, L500.4100, L509.3000, L501.9910 #### [facility] [address] [place], [address] GGTPon 12-07-2023 GGTP 28 U/L Normal 15-85 [facility] Comment on above: Order Comment: Order Date: 12/06/23 Order Info: 785-07 - CMP Order Info: - LIPID Order Info: 2323-08 - GGTP Order Info: 3015-09 - TSH Order Info: 2856-07 - PSA Order Info: 2497-10 FE Order Info: 2275-10 - FREDDIE Performed By: #### L 501.5100 #### [facility] [address] [place], [place], [address] Ironon 12-07-2023 Iron [Mass/Vol] 142 ug/dL Normal 65-175 [facility] Comment on above: Order Comment: Order Date: 12/06/23 Order Info: 785-07 - CMP Order Info: - LIPID Order Info: 2323-08 - GGTP Order Info: 3015-09 - TSH Order Info: 2856-07 - PSA Order Info: 2497-10 FE Order Info: 2275-10 - FREDDIE Performed By: #### L 501.9520, L100.0100, L509.6000, L101.9900, L500.4050, L503.0105, L506.1000, L503.6150, L503.6550, L500.4100, L509.3000, L501.9910 #### [facility] [address] [place], [place], [address] Lipid Profileon 12-07-2023 Cholesterol [Mass/Vol] 213 mg/dL High 200 [facility] Comment on above: Order Comment: Order Date: 12/06/23 Order Info: 785-07 - CMP Order Info: - LIPID Order Info: 2 - GGTP Order Info: 3015-09 - TSH Order Info: 2856-07 - PSA Order Info: 2497-10 FE Order Info: 2275-10 - FREDDIE Result Comment: <200 mg/dL Desirable 200-240 mg/dL Borderline >240 mg/dL High Risk Performed By: #### L 501.9520, L100.0100, L509.6000, L101.9900, L500.4050, L503.0105, L506.1000, L503.6150, L503.6550, L500.4100, L509.3000, L501.9910 #### [facility] [address] [place], [address] Cholesterol in HDL [Mass/Vol] 117 mg/dL Normal [facility] Comment on above: Order Comment: Order Date: 12/06/23 Order Info: 0786- - CMP Order Info: 79271-8 - LIPID Order Info: 2323-08 - GGTP Order Info: 3015-09 - TSH Order Info: 2856-07 - PSA Order Info: 2497-10 Order Info: 2275-10 - FREDDIE Result Comment: The drugs N-Acetylcysteine and Metamizole may falsely depress this assay. Reference Range HDL <40 mg/dL Low HDL Cholesterol HDL >or= 60 mg/dL High HDL Cholesterol Performed By: #### L 501.9520, L100.0100, L509.6000, L101.9900, L500.4050, L503.0105, L506.1000, L503.6150, L503.6550, L500.4100, L509.3000, L501.9910 #### [facility] [address] [place], [address] Cholesterol in LDL [Mass/Vol] 83 mg/dL Normal 0-130 [facility] Comment on above: Order Comment: Order Date: 12/06/23 Order Info: 0786- - CMP Order Info: 99844-1 - LIPID Order Info: 2323-08 - GGTP Order Info: 3015-09 - TSH Order Info: 2856-07 - PSA Order Info: 2497-10 FE Order Info: 2275-10 - FREDDIE Performed By: #### L 501.9520, L100.0100, L509.6000, L101.9900, L500.4050, L503.0105, L506.1000, L503.6150, L503.6550, L500.4100, L509.3000, L501.9910 #### [facility] [address] [place], [address] Cholesterol in VLDL [Mass/Vol] 13 mg/dL Normal 5-40 [facility] Comment on above: Order Comment: Order Date: 12/06/23 Order Info: 07- - CMP Order Info: - LIPID Order Info: 2 - GGTP Order Info: 3015-09 - TSH Order Info: 2856-07 - PSA Order Info: 2497-10 Order Info: 2275-10 - FREDDIE Performed By: #### L 501.9520, L100.0100, L509.6000, L101.9900, L500.4050, L503.0105, L506.1000, L503.6150, L503.6550, L500.4100, L509.3000, L501.9910 #### [facility] [address] [facility] [place], [place], [phone] ([phone] Triglyceride [Mass/Vol] 64 mg/dL Normal [facility] Comment on above: Order Comment: Order Date: 12/06/23 Order Info: 785-07 - CMP Order Info: - LIPID Order Info: 2323-08 - GGTP Order Info: 3015-09 - TSH Order Info: 2856-07 - PSA Order Info: 2497-10 Order Info: 2275-10 - FREDDIE Result Comment: The drugs N-Acetylcysteine and Metamizole may falsely depress this assay. Serum Triglycerides Reference Interval Normal <150 mg/dL Borderline high 150 - 199 mg/dL High 200 - 499 mg/dL Very High > or = 500 mg/dL Performed By: #### L 501.9520, L100.0100, L509.6000, L101.9900, L500.4050, L503.0105, L506.1000, L503.6150, L503.6550, L500.4100, L509.3000, L501.9910 #### [facility] [address] [facility] [place], [place], [phone] PSA,Total - Annual Screenon 12-07-2023 PSA,TOT SCREEN 0.74 ng/mL Normal 0.00-4.00 [facility] Comment on above: Order Comment: Order Date: 12/06/23 Order Info: 0786-1 - CMP Order Info: 78246-8 - LIPID Order Info: 2324-2 - GGTP Order Info: 3016-3 - TSH Order Info: 2857-1 - PSA Order Info: 2498-4 - FE Order Info: 2276-4 - FREDDIE Result Comment: This test was performed using the TPSA assay method for the [employer] chemistry system. Values obtained with different assay methods cannot be used interchangably. When changing PSA assays in the course of monitoring a patient, additional sequential testing should be carried out to confirm baseline values. Performed By: #### L 501.9520, L100.0100, L509.6000, L101.9900, L500.4050, L503.0105, L506.1000, L503.6150, L503.6550, L500.4100, L509.3000, L501.9910 #### [facility] [address] [facility], [address] Testosterone, Serum Totalon 12-07-2023 Testosterone [Mass/Vol] 647.46 ng/dL Normal [facility] Comment on above: Order Comment: Order Date: 12/06/23 Order Info: 0184-1 - CBCD Order Info: 39319-3 - SED Result Comment: CENT RAL 90% REFERENCE RANGES MALE AGE <50 197.44 - 669.58 ng/dL MALE AGE > or = 50 187.72 - 684.19 ng/dL FEMALE AGE <50 8.38 - 35.01 ng/dL FEMALE AGE > or = 50 <7.00 - 35.92 ng/dL Effective as of 02/08/21 Performed By: #### L 501.9520, L100.0100, L509.6000, L101.9900, L500.4050, L503.0105, L506.1000, L503.6150, L503.6550, L500.4100, L509.3000, L501.9910 #### [facility] [address] [facility] [place], [place], [address] Thyroid Stim Hormone (TSH)on 12-07-2023 TSH 1.94 uIU/mL Normal 0.358-3.74 [facility] Comment on above: Order Comment: Order Date: 12/06/23 Order Info: 0786-1 - CMP Order Info: 64380-0 - LIPID Order Info: 2324-2 - GGTP Order Info: 3016-3 - TSH Order Info: 2857-1 - PSA Order Info: 2498-4 - FE Order Info: 2276-4 - FREDDIE Performed By: #### L 501.9520, L100.0100, L509.6000, L101.9900, L500.4050, L503.0105, L506.1000, L503.6150, L503.6550, L500.4100, L509.3000, L501.9910 #### [facility] [address] [place], [place], [address] Vitamin B12on 12-07-2023 Cobalamin (Vitamin B12) [Mass/Vol] 347 pg/mL Normal 211-911 [facility] Comment on above: Order Comment: Order Date: 12/06/23 Order Info: 2132-9 - B12 Order Info: 30032-4 - VITD25 Order Info: 2986-8 - INÉS Order Info: 2143-6 - NANCY Performed By: #### L 501.9520, L100.0100, L509.6000, L101.9900, L500.4050, L503.0105, L506.1000, L503.6150, L503.6550, L500.4100, L509.3000, L501.9910 #### [facility] [address] [place], [place], [address] Vitamin D,25 Hydroxyon 12-06 Vitamin D 25-OH 29.2 ng/mL Normal [facility] Comment on above: Order Comment: Order Date: 12/06/23 Order Info: 0184-1 - CBCD Order Info: 15633-7 - SED Result Comment: Sarah min D 25(OH) Status Range Deficiency <20 ng/mL (50nmol/L) Insufficiency 20 - 30 ng/mL (50 - 75 nmol/L) Sufficiency 30 - 100 ng/mL (75 - 250 nmol/L) Toxicity >100 ng/mL (>250 nmol/L) Performed By: #### L 501.9520, L100.0100, L509.6000, L101.9900, L500.4050, L503.0105, L506.1000, L503.6150, L503.6550, L500.4100, L509.3000, L501.9910 #### [facility] [address] [place], [address] CNPNon 11-08-2021 CNPN Telephone ([facility]) ---- MELISSA YOUNG ([id number]) 1955 M Date Time Provider Department 11/08/21 NEAL RICE V DO [facility] During your visit today, we recorded the following information about you: Megan Laureen 11/08/2021 10:50 AM Signed Pts spouse would like to have a disc copy of XR of hand on 01/12/21 and report. 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 Aaliyah Hebert, PSS 11/08/2021 3:38 PM Signed CD / report READY FOR FUNNEL SETTER AT [facility] Allergies As of Date: 11/08/2021 (No Known Allergies) Date Reviewed: 01/13/2021 Reviewed by: Marty Quiles MD - Fully Assessed Reason for Visit: Release Of Medical Records [2017] Prescriptions as of 06/03/2022 - ibuprofen (ADVIL) 200 mg tablet Take 200 mg by mouth every 6 hours as needed. - calcium carbonate (TUMS) 500 mg chew Take by mouth twice daily. - albuterol HFA (PROVENTIL HFA, VENTOLIN HFA) 90 mcg/actuation inhaler Inhale 2 Puffs as instructed every 4 hours as needed for Wheezing/Shortness of Breath. With spacer please. - Benzonatate (TESSALON) 200 mg capsule Take 200 mg by mouth twice daily as needed for Cough. Swallow whole please. Problem List As Of Date: 11/08/2021 (None) Encounter Status:Closed by MEGAN GARDUNO on 06/03/22 Normal [facility] Vital Signs Date Time Vital Sign Value Performing Clinician Benji caldwell 01-19-2025 17:55-0400 Body temperature 97.5 [degF] Dr. Mir Zamorano MD Work Phone: [facility] 01-19-2025 17:55-0400 Diastolic blood pressure 84 mm[Hg] Dr. Mir Zamorano MD Work Phone: [facility] 01-19-2025 17:55-0400 Heart rate 88 /min Dr. Mir Zamorano MD Work Phone: [facility] 01-19-2025 17:55-0400 Respiratory rate 16 /min Dr. Mir Zamorano MD Work Phone: [facility] 01-19-2025 17:55-0400 SaO2% (BldA) [Mass fraction] 92 % Dr. Mir Zamorano MD Work Phone: [facility] 01-19-2025 17:55-0400 Systolic blood pressure 124 mm[Hg] Dr. Mir Zam[facility]ano MD [facility] [facility] 01-19-2025 15:48-0400 Body height 172.[address] Mir Zamorano MD Work Phone: [facility] 01-19-2025 15:48-0400 Body mass index (BMI) [Ratio] 26.9 kg/m2 Dr. Mir Zamorano MD Work Phone: [facility] 01-19-2025 15:48-0400 Body temperature 98.9 [degF] Dr. Mir Zamorano MD Work Phone: [facility] 01-19-2025 15:48-0400 Body weight 80.[address] Mir Zamorano MD Work Phone: [facility] 01-19-2025 15:48-0400 Diastolic blood pressure 78 mm[Hg] Dr. Mir Zamorano MD Work Phone: [facility] 01-19-2025 15:48-0400 Heart rate 78 /min Dr. Mir Zamorano MD Work Phone: [facility] 01-19-2025 15:48-0400 Respiratory rate 18 /min Dr. Mir Zamorano MD Work Phone: [facility] 01-19-2025 15:48-0400 SaO2% (BldA) [Mass fraction] 98 % Dr. Mir Zamorano MD Work Phone: [facility] 01-19-2025 15:48-0400 Systolic blood pressure 138 mm[Hg] Dr. Mir Zamorano MD Work Phone: [facility] Encounters Encounter Date Encounter Type Care Provider Facility Start: 01-19-2025 End: 01-19-2025 Admission to same day surgery center Dr. Paolo Caraballo [facility] Start: 01-19-2025 End: 01-19-[address] Mir Zamorano MD Work Phone: [facility] Start: 01-19-2025 Non-patient / Non-visit Dr. Paolo Caraballo MD -[facility] Start: 01-19-2025 End: 01-19-2025 Emergency department patient visit Dr. Mir Zamorano MD Work Phone: -Emergency Department Work Phone: Start: 04-01-2024 End: 04-01-2024 [facility] Start: 12-07-2023 End: 12-07-2023 [facility] Start: 11-08-2021 Telephone encounter Neal Gatica DO Work Phone: Radiology Comment on above: Release Of Medical R ecords Procedures Date Procedure Procedure Detail Performing Clinician Start: 01-19-[address] Mir Zamorano MD Work Phone: Start: 01-19-2025 Computed tomography of abdomen and pelvis with intravenous contrast Dr. Mir Zamorano MD Work Phone: Start: 01-19-[address] Mir Zamorano MD Work Phone: Start: 01-19-2025 Urnls dip stick/tabl et reagent auto microscopy Dr. Mir Zamorano MD Work Phone: Plan of Treatment Date Care Activity Detail Author Start: 01-19-2025 Patient discharge [facility] Start: 01-19-2025 Laparoscopic appendectomy Laparoscopic, Appendectomy (Not Applicable) [facility] Start: 01-19-2025 Hospital admission, emergency, from emergency room, medical nature [facility] Start: 03-16-2022 Influenza vaccination INFLUENZA (#1) [facility] Start: 07-16-2021 DEPRESSION ASSESSMENT DEPRESSION ASSESSMENT [facility] Start: 2012 PROSTATE CANCER SCREENING DISCUSSION PROSTATE CANCER SCREENING DISCUSSION [facility] Start: 09-16-2007 SHINGRIX VACCINE (1 of 2) SHINGRIX VACCINE (1 of 2) [facility] Start: 2002 COLOGUARD (FIT-DNA) COLOGUARD (FIT-DNA) [facility] Start: 2002 Colonoscopy COLONOSCOPY [facility] Start: 2002 COLORECTAL CANCER SCREENING COLORECTAL CANCER SCREENING [facility] Start: [address] COLONOGRAPHY [facility] Start: 2002 DIABETES SCREEN DIABETES SCREEN [facility] Start: 2002 FECAL OCCULT BLOOD FECAL OCCULT BLOOD [facility] Start: 2002 SIGMOIDOSCOPY SIGMOIDOSCOPY [facility] Start: 1992 LIPID SCREEN LIPID SCREEN [facility] Start: 1976 Urine microalbumin profile DTAP,TDAP,TD (1 - Tdap) [facility] Start: 09-16-1975 HEPATITIS C SCREENING HEPATITIS C SCREENING [facility] Start: 09-16-1975 HIV SCREENING HIV SCREENING [facility] Start: 09-16-1963 PNEUMOCOCCAL (1 - PCV) PNEUMOCOCCAL (1 - PCV) [facility] Start: 03-18-1958 COVID-19 VACCINE (#1) COVID-19 VACCINE (#1) [facility] Immunizations Immunization Date Immunization Notes Care Provider Ingrid yin 04-15-[address] Mir Zamorano MD Work Phone: [facility] 04-15-2009 influenza virus vaccine, unspecified formulation Neal Rice DO, DO Work Phone: [facility] Payers Date Payer Category Payer Medicare [id number] 2023 Self-pay 2020 Unknown [employer] PPO OOS [id number] 2020-Present [phone] [address] [place] [address] PPO [id number] 2006 Unknown [id number] Private Health Insurance [id number] Unknown [id number] Unknown [id number] Unknown [id number] Social History Date Type Detail Facility Start: 01-13-2021 End: 01-19-2025 Tobacco smoking status SCIS Smokes tobacco daily [facility] Work Phone: History of tobacco use Cigarette Smoker [facility] Work Phone: Start: 01-13-2021 Cigarettes smoked current (pack per day) - Reported 0.5 [facility] Start: 01-13-2021 Tobacco use and exposure Smokeless tobacco non-user [facility] Work Phone: Start: 01-13-2021 Alcohol intake Current drinke r of alcohol (finding) [facility] Start: 1955 Sex Assigned At Not on file [facility] Start: 1955 Sex Assigned At Male [facility] Mental Status Date Assessment Result Facility 01-19-2025 Cognitive function Voice/Name [facility] Work Phone: Clinical Notes 11-08-2021 to 01-19-2025 Note Date & Type Note Facility 01-19-2025 Consult note Note Date/Time January 19, 2025 4:21p [facility] Department [address] [place] [address] Pre-Anesthesia Evaluation 01/19/25 1620 MR#: [id number] Acct: [id number] Name: MELISSA YOUNG Rep #:[id number] : 1955 69 From: Venkat Shah MD PCP: Dr. Mir Zamorano MD Status :REG SDC Y Race: C Location: [place] [address] ASA Classification* ASA Classification ASA Classification: 2 and E Assessment & Plan Anesthesia* Anesthesia Assessment Anesthesia Assessment: Discussed sedation and/or anesthesia options, risks, benefits, and alternatives with patient/parents/legal guardian/POA. Questions invited. The patient/parents/legal guardian/POA seems to understand and agrees to proceedwith anesthesia plan. Reviewed the physical assessment, medical history, allergy history and patient home medications list prior to surgery/procedure/anesthetic and documented any changes. Performed airway and anesthesia risk assessments. Anesthesia Type Anesthesia Type: General Anesthesia Focused Assessment* Temperature: 98.9 F Pulse Rate: 78 Blood Pressure: 138/78 Respiratory Rate: 18 Pulse Ox: 98 Airway Assessment Mouth opens: >3 cm Mallampati Score: II Labs Anesthesia Preop lab: CBC WBC 10.6 K/mm3 (4.4-11.0) 01/19/25 14:05 01/19/25 RBC 4.42 M/mm3 (4.6-6.2) L 01/19/25 14:01/19/25 Hgb 14.6 g/dL (13.0-16.5) 01/19/25 14:01/19/25 Hct 41.2 % (40-54) 01/19/25 14:01/19/25 Plt Count 221 K/mm3 (150-450) 01/19/25 14:01/19/25 CHEMISTRY Potassium 3.7 mmol/L (3.3-5.1) 01/19/25 14:05 01/19/25 Sodium 133 mmol/L (133-145) 01/19/25 14:05 01/19/25 Magnesium 2.4 mg/dL (1.6-2.6) 01/20/21 16:47 01/20/21 BUN 5 mg/dL (4-19) 01/19/25 14:05 01/19/25 Creatinine 0.83 mg/dL (0.70-1.20) 01/19/25 14:05 01/19/25 Glucose 74 mg/dL (70-99) 01/19/25 14:05 01/19/25 TSH 1.94 uIU/mL (0.358-3.74) 12/07/23 10:36 COAG Pre-Assessment Diagnosis/Proposed Procedure Planned Operative Procedure(s): Laparoscopic appendectomy Anesthesia History 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 When Was Last Pacemaker Check QUESTION #4 FULL TEXT: You/Your Family Experience fever (hyperthermia) with Anesthesia Last Oral Intake Last Oral intake: Last Oral Intake NPO since Meds taken in AM with sips of water? 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 Has anyone observed you stop No 01/19/25 15:48 breathing during sleep? STOP Results Negative 01/19/25 15:48 QUESTION #5 FULL TEXT : Do you snore loudly (louder than talking or can be heard through closed doors)? 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 Specify any problems Hx of Preganancy in last 3 Months Nurse Filling Out Transfusion & Questions: Date: Time: Patient unable to answer at this time (ie. 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 Hx Now No 01/19/25 15:48 Gestational Age (in weeks): EDC: Hx Hx Para Hx Section SAB No 01/19/25 15:48 Active Medications Active Medications: Current Medications Generic Name Dose Route Start Last Admin Trade Name Freq PRN Reason Stop Dose Admin Iopamidol 0 ml 01/19/25 14:30 Contrast Allergy Safety Check IV X1 WILBER PFSH Medical History GERD (gastroesophageal reflux disease) Trigger finger Home Medications ?Medication ?Instructions ?Recorded ?Last Taken ?Type calcium carbonate (Antacid 400 mg PO Q4H PRN heartburn 01/19/25 Unknown History (calcium carbonate)) Allergy/AdvReac Type Severity Reaction Status Date / Time No Known Allergies Allergy Verified 01/19/25 13:03 Social History Smoking Status: Current every day smoker tobacco type: cigarettes Review of Systems (Anesthesia) ROS Narrative System reviewed and no additional complaints, except as documented. 01/19/25 1621 <Electronically signed by Venkat Shah MD > Date _ Venkat Shah MD Cosigner Signature: Date CC: ~ Signed [facility] Work Phone: 1(733) 417-785107-07-2025 Evaluation note* Diagnosis Onset Date Resolution Status Admit Date Abdominal pain, acute acute Jan 4:15pm Acute appendicitis acute January 192024 4:15pm [facility] Work Phone: 1(798) 183-781807-07-2025 History and physical note Author Paolo Caraballo [facility] Note Date/Time January 19, 2025 4:04p m [facility] Medical Records Department [address] [place] [address] History & Physical Exam 01/19/25 1601 MR#: [id number] Acct: [id number] Name: MELISSA YOUNG Rep #:[id number] : 1955 69 From: Paolo Caraballo MD PCP: Dr. Mir Zamorano MD Status :DEP ER Location: ED HPI - General General Date of Admission: 01/19/25 Date of Service: 01/19/25 Chief Complaint: Right lower quadrant pain/appendicitis HPI Narrative MELISSA YOUNG, is a 69 M who presents to the emergency department this afternoon with less than 24 hours of abdominal pain. He states that this started last evening as a generalized abdominal pain however this seemed to localize to the right lower quadrant. Due to worsening pain, he presented to the emergency department this afternoon. He was seen and evaluated by the ER staff. White blood cell count was normal however CT scan was performed that showed findings consistent with appendicitis with fecalith. There was no abscess or signs of perforation. General surgery was notified and immediate plans were made to proceed with appendectomy. He denied any nausea or vomiting. He did have some chills but no fever. He has no significant medical problems. No previous abdominal surgeries PFSH Medical History GERD (gastroesophageal reflux disease) Trigger finger Home Medications ?Medication ?Instructions ?Recorded ?Last Taken ?Type calcium carbonate (Antacid 400 mg PO Q4H PRN heartburn 01/19/25 Unknown History (calcium carbonate)) Allergy/AdvReac Type Severity Reaction Status Date / Time No Known Allergies Allergy Verified 01/19/25 13:03 Social History Smoking Status: Current every day smoker tobacco type: cigarettes ROS Constitutional Constitutional: Reports systems reviewed and no addt'l complaints, except as documented Eyes Eyes: Reports systems reviewed and no addt'l complaints, except as documented ENT HEENT: Reports systems reviewed and no addt'l complaints, except as documented Cardiovascular Cardiovascular: Reports systems reviewed and no addt'l complaints, except as documented Respiratory/Chest Respiratory/Chest: Reports systems reviewed and no addt'l complaints, except as documented Gastrointestinal Gastrointestinal: Reports systems reviewed and no addt'l complaints, except as documented Vital Signs Vital Signs Vital Signs: 01/19/25 13:03 01/19/25 14:47 01/19/25 15:48 Temperature 97.8 F 98.2 F 97.8 F Temperature Source Temporal Oral Pulse Rate 86 85 64 Respiratory Rate 18 11 L 18 Blood Pressure 125/92 H 144/90 H 138/76 H Blood Pressure Mean 103 108 96 Blood Pressure Source Blood Pressure Position Blood Pressure Location Pulse Ox 98 97 99 Oxygen Delivery Method Room Air Room Air 01/19/25 15:48 01/19/25 15:50 Temperature 98.9 F 98.9 F Temperature Source Oral Pulse Rate 78 78 Respiratory Rate 18 18 Blood Pressure 138/78 H 138/78 H Blood Pressure Mean 98 Blood Pressure Source Monitor Blood Pressure Position Semi-Fowlers Blood Pressure Location Right Arm Pulse Ox 98 98 Oxygen Delivery Method Room Air Weight Weight: 176 lb 11.2 oz Body Mass Index (BMI) 26.9 Physical Exam Narrative He is alert and oriented x 3. He is in no acute distress. Head is normocephalic and atraumatic. Pupils are equal round and reactive to light. Abdomen is soft, nondistended. He does have mild tenderness in the right lower quadrant. No rebound or guarding. Results Lab / Micro Data 01/19/25 14:05 01/19/25 14:05 Labs: Laboratory Results - last 24 hr 01/19/25 14:05: WBC 10.6, RBC 4.42 L, Hgb 14.6, Hct 41.2, MCV 93.2, MCH 33.0 H, MCHC 35.4, RDW Std Deviation 42.8, RDW Coeff of [place] 12.4, Plt Count 221, MPV 9.5, Immature Gran % (Auto) 0.400, Neut % (Auto) 80.4 H, Lymph % (Auto) 7.3 L, [place] % (Auto) 10.8 H, Eos % (Auto) 0.9, Baso % (Auto) 0.2, Absolute Neuts (auto) 8.5 H, Absolute Lymphs (auto) 0.77 L, Nucleated RBC % 0, Sodium 133, Potassium 3.7, Chloride 98, Carbon Dioxide 23.1, Anion Gap 12, BUN 5, Creatinine 0.83, Estim Creat Clear Calc 83.55, Est GFR (MDRD) Non-Af 96, BUN/Creatinine Ratio 5.6L, Glucose 74, Calcium 8.6, Total Bilirubin 1.78 H, AST 14, ALT 16, Alkaline Phosphatase 61, Total Protein 6.5, Albumin 4.1, Globulin -3.5 L, Albumin/Globulin Ratio -1.2 L, Lipase 10 L, Urine Color Straw, Urine Clarity Clear, Urine pH 6.5, Ur Specific [place] 1.010, Urine Protein 15 H, Urine Glucose (UA) Normal, Urine Ketones 15 H, Urine Occult Blood Negative, Urine Nitrite Negative, Urine Bilirubin Negative, Urine Urobilinogen Normal, Ur Leukocyte Esterase Negative, Urine RBC 0 SEEN, Urine WBC 0-5 SEEN, Ur Squamous Epith Cells 0 SEEN, Urine Bacteria 0 SEEN, Urine Mucus 0 SEEN Imaging Radiology Impression Abdomen/Pelvis CT 01/19/25 14:28 IMPRESSION: Findings in keeping with a acute appendicitis. Calcified appendicoliths are seen within the appendiceal lumen. Loss of the normal lumbar lordosis as well as multilevel disc space narrowing. Red Alert: Acute appy The critical information above was relayed directly by me by telephone to Nikhil Shun on 01/19/2025 at 3:23 pm with readback verification. Reading Location: [facility] Assessment & Plan Assessment/Plan (1) Acute appendicitis: PLAN: Plan The patient is a 69-year-old male with acute appendicitis. I have offered him alaparoscopic appendectomy. We discussed the details of the planned procedure aswell as risks benefits and alternatives. He wishes to proceed. This will beginmomentarily 01/19/25 1604 <Electronically signed by Paolo Caraballo MD> Cosigner Signature (if applicable): CC: Dr. Mir Zamorano MD; Dr. Paolo Caraballo MD~ Signed [facility] Work Phone: 1(160) 918-976307-07-2025 Consult note Author Venkat chris [facility] Note Date/Time January 19, 2025 3:51p m [facility] Medical Records Department [address] [place] [address] Pre-Anesthesia Evaluation 01/19/25 1550 MR#: [id number] Acct: [id number] Name: MELISSA YOUNG Rep #:[id number] : 1955 69 From: Venkat Shah MD PCP: Dr. Mir Zamorano MD Status :DEP Y Race: C Location: ED ASA Classification* ASA Classification ASA Classification: 2 and E Assessment & Plan Anesthesia* Anesthesia Assessment Anesthesia Assessment: Discussed sedation and/or anesthesia options, risks, benefits, and alternatives with patient/parents/legal guardian/POA. Questions invited. The patient/parents/legal guardian/POA seems to understand and agrees to proceedwith anesthesia plan. Reviewed the physical assessment, medical history, allergy history and patient home medications list prior to surgery/procedure/anesthetic and documented any changes. Performed airway and anesthesia risk assessments. Anesthesia Type Anesthesia Type: General Anesthesia Focused Assessment* Temperature: 98.9 F Pulse Rate: 78 Blood Pressure: 138/78 Respiratory Rate: 18 Pulse Ox: 98 Airway Assessment Mouth opens: >3 cm Mallampati Score: II Labs Anesthesia Preop lab: CBC WBC 10.6 K/mm3 (4.4-11.0) 01/19/25 14:05 01/19/25 RBC 4.42 M/mm3 (4.6-6.2) L 01/19/25 14:05 01/19/25 Hgb 14.6 g/dL (13.0-16.5) 01/19/25 14:05 01/19/25 Hct 41.2 % (40-54) 01/19/25 14:05 01/19/25 Plt Count 221 K/mm3 (150-450) 01/19/25 14:05 01/19/25 CHEMISTRY Potassium 3.7 mmol/L (3.3-5.1) 01/19/25 14:05 01/19/25 Sodium 133 mmol/L (133-145) 01/19/25 14:05 01/19/25 Magnesium 2.4 mg/dL (1.6-2.6) 01/20/21 16:47 01/20/21 BUN 5 mg/dL (4-19) 01/19/25 14:05 01/19/25 Creatinine 0.83 mg/dL (0.70-1.20) 01/19/25 14:05 01/19/25 Glucose 74 mg/dL (70-99) 01/19/25 14:05 01/19/25 TSH 1.94 uIU/mL (0.358-3.74) 12/07/23 10:36 COAG Pre-Assessment Diagnosis/Proposed Procedure Planned Operative Procedure(s): Laparoscopic appendectomy Anesthesia History 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 When Was Last Pacemaker Check QUESTION #4 FULL TEXT: You/Your Family Experience fever (hyperthermia) with Anesthesia Last Oral Intake Last Oral intake: Last Oral Intake NPO since Meds taken in AM with sips of water? 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 Has anyone observed you stop No 01/19/25 15:48 breathing during sleep? STOP Results Negative 01/19/25 15:48 QUESTION #5 FULL TEXT : Do you snore loudly (louder than talking or can be heard through closed doors)? 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 Specify any problems Hx of Preganancy in last 3 Months Nurse Filling Out Transfusion & Questions: Date: Time: Patient unable to answer at this time (ie. 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 Hx Now No 01/19/25 15:48 Gestational Age (in weeks): EDC: Hx Hx Para Hx Section SAB No 01/19/25 15:48 Active Medications Active Medications: Current Medications Generic Name Dose Route Start Last Admin Trade Name Freq PRN Reason Stop Dose Admin Piperacillin Sod/Tazobactam 100 mls @ 200 mls/hr 01/19/25 15:23 01/19/25 15:46 Sod 4.5 gm/ Sodium Chloride IV 01/19/25 15:52 200 mls/hr X1 ONE Administration Iopamidol 0 ml 01/19/25 14:30 Contrast Allergy Safety Check IV X1 WILBER PFSH Medical History GERD (gastroesophageal reflux disease) Trigger finger Home Medications ?Medication ?Instructions ?Recorded ?Last Taken ?Type calcium carbonate (Antacid 400 mg PO Q4H PRN heartburn 01/19/25 Unknown History (calcium carbonate)) Allergy/AdvReac Type Severity Reaction Status Date / Time No Known Allergies Allergy Verified 01/19/25 13:03 Social History Smoking Status: Current every day smoker tobacco type: cigarettes Review of Systems (Anesthesia) ROS Narrative System reviewed and no additional complaints, except as documented. 01/19/25 1551 <Electronically signed by Venkat Shah MD > Date _ Venkat Shah MD Cosigner Signature: Date CC: ~ Signed [facility] Work Phone: 1(473) 439-100507-07-2025 Procedure note [facility] Medical Records Department [address] [place] [address] Operative Report 01/19/25 1734 MR#: [id number] Acct: [id number] Name: MELISSA YOUNG Rep #[id number] : 1955 69 From: Paolo Caraballo MD PCP: Dr. Mir Zamorano MD Status :[facility] Location: [facility] AC-TB A-1 Procedures Digestive 40xxx-49xxx: 11406 Laparoscopy appendectomy Operative Report (Standard) Operative Information Date of Procedure: 01/19/25 Pre-Operative Diagnosis: Acute appendicitis Post-Operative Diagnosis: Acute appendicitis Surgery/Procedure Performed: Laparoscopic appendectomy cylinder tester: No Type of Anesthesia: General and Local RN Documented Start/Stop Times: Operation Date: 01/19/25 16:20 Case Time Anesthesia Start 01/19/25 16:26 Into Room 01/19/25 16:26 Procedure Start 01/19/25 16:46 Procedure End 01/19/25 17:22 Anesthesia End 01/19/25 17:26 Out of Room 01/19/25 17:26 Into Recovery 01/19/25 17:28 Procedure Start Time: 16:46 Procedure Stop Time: 17:22 Select all DRAINS/GRAFTS/IMPLANTS that apply: None Special Medications: 4.5 g Zosyn IV preop Estimated Blood Loss: 10 mL Specimen collected: Yes Description of specimen(s) removed: Appendix Description of surgery: The patient is a 69-year-old male who began having abdominal pain last evening. He presented to theemergency department this afternoon with ongoing right lowerquadrant pain. He was seen evaluate by the ER staff. CT scan was performed andshowed findings consistent with acute appendicitis. I was asked to see the patient. I offered him a laparoscopic appendectomy as treatment. We discussed the details of the planned procedure including the risks benefits and alternatives. And he wished to proceed. The patient was brought the operating room today following informed consent. Preoperative antibiotics were given and a timeout was performed. He was placed supine on the operative table with arms initially outstretched and arm boards. A general endotracheal anesthesia was induced. Once asleep his left arm was tucked at his side. His right arm was left outstretched on the armboard. The abdomen is then clipped prepped and draped in the usual sterile manner. A 5 mm incision was made just below theumbilicus which a 5 mm 0 degree scope was inserted. There were no signs of bowel or vascular injury. A 12 mm trocars placed under direct visualization in the left upper quadrant. And a 5 mm trocarwasplaced under direct visualization in the left lower quadrant. The patient was then rolled to the left. The appendix was clearly visible. It was certainly inflamed but not ruptured or perforated. The cecum appeared grossly normal. A [place] dissector was then used to create a small window in the mes entery near the base the appendix. A JANUARY stapler was fired across the base of the appendix flush with the cecum. A JANUARY vascular load was fired across the mesoappendix. With this the appendix was free. It was placed into a bag and brought out through the 12 mm trocar site. The trocar was replaced. There was some bleeding from the staple line on the cecum. A 5 mm clip overcaster was used to place a clip on the site of bleeding. This provided hemostasis. The right lower quadrant was then copiously irrigated with 2 L of saline until clear. Again hemostasis was excellent. There were no signs of bowelor vascular injury. The fascia at the 12 mm trocar site was closed using PDS with the aid of the fascial closure device. The remaining trocars were opened up. Insufflation was allowed to escape. A total of 20 cc of local anesthetic were injected into the incisions. The incisions were then closed with 4-0 Vicryl. Skin glue was applied as dressing. He was awakened from anesthesia and taken torecovery in good condition. Surgical Findings: Moderate acute appendicitis without perforation Complications Complications: No Admit VTE Documentation VTE Present on Admission: No VTE Mechan Device Prophylaxis: SCD's VTE Pharm Prophylaxis ordered?: No Reason prophylaxis not ordered: Treatment Not Indicated 01/19/25 1749 Cosigner Signature (if applicable): CC: Dr. Mir Zamorano MD; Dr. Paolo Caraballo MD~ Signed [facility]07-07-2025 Discharge summary [facility] Medical Records Department [address] [place] [address] Instructions for Home/Discharge Instructions 01/19/25 7086 MR#: [id number] Acct: [id number] Name: MELISSA YOUNG Rep #:[id number] : 1955 69 From: Paolo Caraballo MD PCP: Dr. Mir Zamorano MD Status :[place] [facility] [place] Discharge Instructions Diet Discharge Diet: Light diet - advance as tolerated Activity Discharge Activity: Return to Normal Activity and May Shower May shower in (days): 1 Ice area for (Minutes): 30 Lifting Restrictions: No lifting pushing or pulling more than 20 pounds for 4 weeks Dressing / Incision Call your doctor if your incision/area has: Continuous Slow Oozing, Sudden Increased Bleeding, Increased Pain/ Swelling, Increased Redness, Foul Smelling Discharge and Swelling at the incision site Call your doctor if you observe: Fever of 101 or Higher Cleanse incision/area with: Soap & Water Follow Up Care Please Follow Up With: Paolo Caraballo MD When: 2 weeks. Please call to schedule appointment Test Results: Test results from this visit will be discussed in further detail at your follow- up appointment, if applicable. Discharge Plan Admission Primary Reason for Your Visit: Appendicitis Attending Provider: Paolo Caraballo Primary Care Provider: Mir Zamorano Instructions Print Language: Bangladeshi Discharge Orders/Prescriptions Prescriptions: New oxycodone-acetaminophen [Percocet] 5-325 mg tablet 1 tab PO Q8H PRN (Reason: pain) 4 Days Qty: 12 0RF Continued calcium carbonate [Antacid (calcium carbonate)] 200 mg calcium (500 mg) tablet,chewable 400 mg PO Q4H PRN (Reason: heartburn) Referrals / Follow Up: Mir Zamorano MD [Primary Care Provider] - Disposition Disposition (needs filled in before D/C Order can be placed): Home, Self Care 01/19/25 1734Paolo Caraballo MD CC: Dr. Mir Zamorano MD ~ Signed [facility]07-07-2025 Discharge summary Author Shun Tejeda [facility] Note Date/Time January 19, 2025 3:28p [facility] Medical Records Department [address] [place] [address] Emergency Department Summary 01/19/25 MR#: [id number] Acct: [id number] Name: MELISSA YOUNG Rep #:[id number] : 1955 69 From: Shun Tejeda MD PCP: Dr. Mir Zamorano MD Status :REG ER Location: ED HPI HPI - GI History of Present Illness Chief Complaint: Abd Pain Informant: patient Abdominal Pain/Flank Pain Onset: Today and Yesterday Context: Gradual Onset Timing: Continuous Quality: Cramping and Stabbing Location: RLQ Current Severity: Moderate Maximum Severity: Moderate Worsened by: Car ride Relieved by: Nothing Nausea/Vomiting/Emesis GI Symptom: Positive for Nausea Onset: Today Severity: Mild Diarrhea/Melena/Hematochezia GI Symptom: Negative for Diarrhea, Melena or Hematochezia Associated Symptoms Associated Symptoms: Negative for Dysuria, Frequency, Hematuria or Urgency Narrative Narrative: 69-year-old male no prior abdominal surgeries. Says last night around 04/14/1930getting right lower quadrant dull that is progressively worse. No prior historyof this. Associated dry heaves but no vomiting no diarrhea. No dysuria. No fever. Said he had a bowel movement yesterday very small bowel this morning. States has never had pain like this before in his abdomen. Prior similar symptoms: No Recent Illness/Hospitalization: No PFSH PFSH Medical History GERD (gastroesophageal reflux disease) Trigger finger Home Medications ?Medication ?Instructions ?Recorded ?Last Taken ?Type calcium carbonate (Antacid 400 mg PO Q4H PRN heartburn 01/19/25 Unknown History (calcium carbonate)) Allergy/AdvReac Type Severity Reaction Status Date / Time No Known Allergies Allergy Verified 01/19/25 13:03 Social History Smoking Status: Current every day smoker tobacco type: cigarettes ROS ROS ED ROS Narrative Abdominal pain. Nausea. Constitutional Constitutional ED: Denies chills or fever(s) ENT ENT ED: Denies ear pain Cardiovascular Cardiovascular: Denies chest pain Respiratory/Chest Respiratory/Chest: Denies cough or dyspnea Gastrointestinal Gastrointestinal: Reports abdominal pain; Denies diarrhea, melena, nausea or vomiting Genitourinary Genitourinary ED: Denies dysuria or hematuria Musculoskeletal Musculoskeletal: Denies arthralgias Integumentary Denies abscess Neurologic Neurologic: Denies headache(s) Psychiatric Psychiatric: Denies anxiety Endocrine Endocrinology: Denies polydipsia Hematologic/Lymphatic Hematologic/Lymphatic: Denies easy bleeding Allergic/Immunologic Allergic/Immunologic ED: Denies mouth swelling, tongue swelling or urticaria EXAM Physical Exam Narrative Exam Narrative: C9-year-old male vital signs stable afebrile. Lying in bed. No one else present in room. H EENT exam pupils round reactive light. Moist mucous membranes. Neck nontender no JVD. No lymphadenopathy. Lungs clear to auscultation bilaterally. Heart regular rhythm rate about 85 no murmur. Chest wall ribs nontender. Abdomen soft nondistended. Normal bowel sounds. He does have squeezing tenderness right lower quadrant. No hernia or mass. No pulsatile mass. Right upper left upper left lower quadrant unremarkable. He ismoving all 4 extremities. Nontender no edema. Neurologically is awake alert. Answering questions following commands. Const Vital Signs: 01/19/25 13:03 01/19/25 14:47 Temperature 97.8 F 98.2 F Temperature Source Temporal Oral Pulse Rate 86 85 Respiratory Rate 18 11 L Blood Pressure 125/92 H 144/90 H Blood Pressure Mean 103 108 Pulse Ox 98 97 Oxygen Delivery Method Room Air Room Air Positive well nourished and well developed; Negative for cachectic, contracturesor unkempt General Appearance ED: well developed and NAD; Negative for unkempt, cachectic, contractures or pallor Nutritional Appearance: Negative for cachectic HEENT Reports moist mucous membranes normocephalic and atraumatic Eyes PERRL General Eye ED: Negative for pale conjunctiva or scleral icterus Neck no lymphadenopathy, supple and no JVD General: Negative for tenderness Resp normal respiratory effort and clear to auscultation bilaterally Cardio regular rate, regular rhythm, S1 normal heart sound, S2 normal heart sound and no murmurs GI non-distended and no masses; Negative for non-tender Auscultation: normoactive bowel sounds Palpation: soft and tender; Negative for guarding, rigid, hepatomegaly, splenomegaly, hernia, mass, pulsatile mass or rebound tenderness present Back/Spine no CVA tenderness General Back: Negative for CVA tenderness Cervical Spine: Negative for cervical spine tenderness Thoracic Spine / Upper Back: Negative for thoracic spinal tenderness Lumbar Spine / Lower Back: Negative for lumbar spinal tenderness Coccyx: Negative for other Extremity full ROM General Extremety ED: Negative for edema or tenderness General Extremity: Negative for edema Neuro CN's II-XII intact bilaterally and moves all extremities Sensorium / Orientation: alert, oriented to person, oriented to place and oriented to time Motor Exam: strength 5/5 throughout Psych mental status grossly normal and thought process normal Appearance: Negative for unkempt Attitude: No agitated Mood & Affect: Negative for depressed, anxious or tearful Skin no wounds General Skin Exam: Negative for jaundice or pallor Lesions: no lesions Rashes: no rashes Trauma: Negative for abrasion Nails: Negative for discolored MDM MDM MDM Narrative Medical decision making narrative: 69-year-old male right lower quadrant abdominal pain differential included appendicitis, right-sided diverticulitis I do not think it is a kidney stone. Twan not think it is his gallbladder. Currently does not look obstructed. I do not see an obvious hernia. I would treated with morphine and Zofran. Liter fluid. Abdominal labs and a CT of his abdomen pelvis. Exam, history and CT consistent with acute appendicitis. To be treated with IV Zosyn. I have general surgery on page talk to them about the patient to be taken to the OR for appendicitis. Patient doing well on repeat exam at 3:25 PM. I told the his believe his about the CAT scan results and he will be called to the operating room. I spoke to the general surgeon. He will admit the patient and is awaiting an open OR to do an appendectomy. History & Record Review Additional record(s) reviewed:: Prior inpatient record, Prior outpatient record and Prior ED visit Lab Data Attestation: I reviewed the patient's lab results. Lab results narrative: CBC shows a white count 10.6. H&H 14 and 41. Platelets 221. Chemistries show sodium 133. Gap 12. Normal BUN and creatinine. Glucose 74. Liver enzymes show a total bilirubin 1.78. Lipase 10. UA negative so far except for ketones. Micro pending. CAT scan abdomen pelvis shows acute appendicitis with appendicolith. Labs: Laboratory Results - last 24 hr 01/19/25 14:05 WBC 10.6 RBC 4.42 L Hgb 14.6 Hct 41.2 MCV 93.2 MCH 33.0 H MCHC 35.4 RDW Std Deviation 42.8 RDW Coeff of [place] 12.4 Plt Count 221 MPV 9.5 Immature Gran % (Auto) 0.400 Neut % (Auto) 80.4 H Lymph % (Auto) 7.3 L [place] % (Auto) 10.8 H Eos % (Auto) 0.9 Baso % (Auto) 0.2 Absolute Neuts (auto) 8.5 H Absolute Lymphs (auto) 0.77 L Nucleated RBC % 0 Sodium 133 Potassium 3.7 Chloride 98 Carbon Dioxide 23.1 Anion Gap 12 BUN 5 Creatinine 0.83 Estim Creat Clear Calc 83.55 Est GFR (MDRD) Non-Af 96 BUN/Creatinine Ratio 5.6 L Glucose 74 Calcium 8.6 Total Bilirubin 1.78 H AST 14 ALT 16 Alkaline Phosphatase 61 Total Protein 0.6 L Albumin 4.1 Globulin -3.5 L Albumin/Globulin Ratio -1.2 L Lipase 10 L Urine Color Straw Urine Clarity Clear Urine pH 6.5 Ur Specific [place] 1.010 Urine Protein 15 H Urine Glucose (UA) Normal Urine Ketones 15 H Urine Occult Blood Negative Urine Nitrite Negative Urine Bilirubin Negative Urine Urobilinogen Normal Ur Leukocyte Esterase Negative Radiography Diagnostic Testing: Clinical Impression(s) from Imaging Studies Abdomen/Pelvis CT 01/19/25 14:28 IMPRESSION: Findings in keeping with a acute appendicitis. Calcified appendicoliths are seen within the appendiceal lumen. Loss of the normal lumbar lordosis as well as multilevel disc space narrowing. Red Alert: Acute appy The critical information above was relayed directly by me by telephone to Shun Tejeda on 01/19/2025 at 3:23 pm with readback verification. [facility] Plan Dx/Rx/DC Orders Clinical Impression: Abdominal pain, acute, Acute appendicitis Disposition Disposition: Acute Care Hospital [facility] What to do if you have Problems For any increased pain, shortness of breath, bleeding, nausea or vomiting, chestpain, or any unexpected problems, contact your Primary Care Provider. Call [facility] ([phone]) or report to the closest Emergency Room. Call 911 if necessary. 01/19/25 1528 <Electronically signed by Shun Tejeda MD> Cosigner Signature (if applicable): CC: Dr. Mir Zamoraon MD ~ Signed [facility] Work Phone: 1(480) 357-590607-07-2025 Consult note [facility] Medical Records Department [address] [place] [address] Pre-Anesthesia Evaluation 01/19/25 1620 MR#: [id number] Acct: [id number] Name: MELISSA YOUNG Rep #:[id number] : 1955 69 From: Venkat Shah MD PCP: Dr. Mir Zamorano MD Status :REG SDC Y Race: C Location: [place] [address] ASA Classification* ASA Classification ASA Classification: 2 and E Assessment & Plan Anesthesia* Anesthesia Assessment Anesthesia Assessment: Discussed sedation and/or anesthesia options, risks, benefits, and alternatives with patient/parents/legal guardian/POA. Questions invited. The patient/parents/legal guardian/POA seems to understand and agrees to proceedwith anesthesia plan. Reviewed the physical assessment, medical history, allergy history and patient home medications list prior to surgery/procedure/anesthetic and documented any changes. Performed airway and anesthesia risk assessments. Anesthesia Type Anesthesia Type: General Anesthesia Focused Assessment* Temperature: 98.9 F Pulse Rate: 78 Blood Pressure: 138/78 Respiratory Rate: 18 Pulse Ox: 98 Airway Assessment Mouth opens: >3 cm Mallampati Score: II Labs Anesthesia Preop lab: CBC WBC 10.6 K/mm3 (4.4-11.0) 01/19/25 14:05 01/19/25 RBC 4.42 M/mm3 (4.6-6.2) L 01/19/25 14:05 01/19/25 Hgb 14.6 g/dL (13.0-16.5) 01/19/25 14:05 01/19/25 Hct 41.2 % (40-54) 01/19/25 14:05 01/19/25 Plt Count 221 K/mm3 (150-450) 01/19/25 14:05 01/19/25 CHEMISTRY Potassium 3.7 mmol/L (3.3-5.1) 01/19/25 14:05 01/19/25 Sodium 133 mmol/L (133-145) 01/19/25 14:05 01/19/25 Magnesium 2.4 mg/dL (1.6-2.6) 01/20/21 16:47 01/20/21 BUN 5 mg/dL (4-19) 01/19/25 14:05 01/19/25 Creatinine 0.83 mg/dL (0.70-1.20) 01/19/25 14:05 01/19/25 Glucose 74 mg/dL (70-99) 01/19/25 14:05 01/19/25 TSH 1.94 uIU/mL (0.358-3.74) 12/07/23 10:36 COAG Pre-Assessment Diagnosis/Proposed Procedure Planned Operative Procedure(s): Laparoscopic appendectomy Anesthesia History 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 When Was Last Pacemaker Check QUESTION #4 FULL TEXT: You/Your Family Experience fever (hyperthermia) with Anesthesia Last Oral Intake Last Oral intake: Last Oral Intake NPO since Meds taken in AM with sips of water? 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 Has anyone observed you stop No 01/19/25 15:48 breathing during sleep? STOP Results Negative 01/19/25 15:48 QUESTION #5 FULL TEXT : Do you snore loudly (louder than talking or can be heard through closeddoors)? 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 Specify any problems Hx of Preganancy in last 3 Months Nurse Filling Out Transfusion & Questions: Date: Time: Patient unable to answer at this time (ie. 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 Hx Now No 01/19/25 15:48 Gestational Age (in weeks): EDC: Hx Hx Para Hx Section SAB No 01/19/25 15:48 Active Medications Active Medications: Current Medications Generic Name Dose Route Start Last Admin Trade Name Freq PRN Reason Stop Dose Admin Iopamidol 0 ml 01/19/25 14:30 Contrast Allergy Safety Check IV X1 WILBER PFSH Medical History GERD (gastroesophageal reflux disease) Trigger finger Home Medications ?Medication ?Instructions ?Recorded ?Last Taken ?Type calcium carbonate (Antacid 400 mg PO Q4H PRN heartburn 01/19/25 Unknown History (calcium carbonate)) Allergy/AdvReac Type Severity Reaction Status Date / Time No Known Allergies Allergy Verified 01/19/25 13:03 Social History Smoking Status: Current every day smoker tobacco type: cigarettes Review of Systems (Anesthesia) ROS Narrative System reviewed and no additional complaints, except as documented. 01/19/25 1621 > Date _ Venkat Shah MD [facility] Signature: Date CC: ~ Signed [facility]07-07-2025 History and physical note [facility] Medical Records Department [address] [place] [address] History & Physical Exam 01/19/25 1601 MR#: [id number] Acct: [id number] Name: MELISSA YOUNG Rep #:[id number] : 1955 69 From: Paolo Caraballo MD PCP: Dr. Mir Zamorano MD Status :DEP ER Location: ED HPI - General General Date of Admission: 01/19/25 Date of Service: 01/19/25 Chief Complaint: Right lower quadrant pain/appendicitis HPI Narrative MELISSA YOUNG, is a 69 M who presents to the emergency department this afternoon with less than 24 hours of abdominal pain. He states that this started last evening as a generalized abdominal pain however this seemed to localize to the right lower quadrant. Due to worsening pain, he presented to the emergency department this afternoon. He was seen and evaluated by the ER staff. White blood cell count was normal however CT scan was performed that showed findings consistent with appendicitis with fecalith. There was no abscess or signs of perforation. General surgery was notified and immediate plans were made to proceed with appendectomy. He denied any nausea or vomiting. He did have some chills but no fever. He has no significant medical problems. No previous abdominal [facility] Medical History GERD (gastroesophageal reflux disease) Trigger finger Home Medications ?Medication ?Instructions ?Recorded ?Last Taken ?Type calcium carbonate (Antacid 400 mg PO Q4H PRN heartburn 01/19/25 Unknown History (calcium carbonate)) Allergy/AdvReac Type Severity Reaction Status Date / Time No Known Allergies Allergy Verified 01/19/25 13:03 Social History Smoking Status: Current every day smoker tobacco type: cigarettes ROS Constitutional Constitutional: Reports systems reviewed and no addt'l complaints, except as documented Eyes Eyes: Reports systems reviewed and no addt'l complaints, except as documented ENT HEENT: Reports systems reviewed and no addt'l complaints, except as documented Cardiovascular Cardiovascular: Reports systems reviewed and no addt'l complaints, except as documented Respiratory/Chest Respiratory/Chest: Reports systems reviewed and no addt'l complaints, except as documented Gastrointestinal Gastrointestinal: Reports systems reviewed and no addt'l complaints, except as documented Vital Signs Vital Signs Vital Signs: 01/19/25 13:03 01/19/25 14:47 01/19/25 15:48 Temperature 97.8 F 98.2 F 97.8 F Temperature Source Temporal Oral Pulse Rate 86 85 64 Respiratory Rate 18 11 L 18 Blood Pressure 125/92 H 144/90 H 138/76 H Blood Pressure Mean 103 108 96 Blood Pressure Source Blood Pressure Position Blood Pressure Location Pulse Ox 98 97 99 Oxygen Delivery Method Room Air Room Air 01/19/25 15:48 01/19/25 15:50 Temperature 98.9 F 98.9 F Temperature Source Oral Pulse Rate 78 78 Respiratory Rate 18 18 Blood Pressure 138/78 H 138/78 H Blood Pressure Mean 98 Blood Pressure Source Monitor Blood Pressure Position Semi-Fowlers Blood Pressure Location Right Arm Pulse Ox 98 98 Oxygen Delivery Method Room Air Weight Weight: 176 lb 11.2 oz Body Mass Index (BMI) 26.9 Physical Exam Narrative He is alert and oriented x 3. He is in no acute distress. Head is normocephalic and atraumatic. Pupils are equal round and reactive to light. Abdomen is soft, nondistended. He does have mild tenderness in the right lower quadrant. No reboundor guarding. Results Lab / Micro Data 01/19/25 14:05 01/19/25 14:05 Labs: Laboratory Results - last 24 hr 01/19/25 14:05: WBC 10.6, RBC 4.42 L, Hgb 14.6, Hct 41.2, MCV 93.2, MCH 33.0 H, MCHC 35.4, RDW Std Deviation 42.8, RDW Coeff of Enrico 12.4, Plt Count 221, MPV 9.5, Immature Gran % (Auto) 0.400, Neut % (Auto) 80.4 H, Lymph % (Auto) 7.3 L, [place] % (Auto) 10.8 H, Eos % (Auto) 0.9, Baso % (Auto) 0.2, Absolute Neuts (auto) 8.5 H, Absolute Lymphs (auto) 0.77 L, Nucleated RBC % 0, Sodium 133, Potassium 3.7, Chloride 98, Carbon Dioxide 23.1, Anion Gap 12, BUN 5, Creatinine 0.83, Estim Creat Clear Calc 83.55, Est GFR (MDRD) Non-Af 96, BUN/Creatinine Ratio 5.6L, Glucose 74, Calcium 8.6, Total Bilirubin 1.78 H, AST 14, ALT 16, Alkaline Phosphatase 61, Total Protein 6.5, Albumin 4.1, Globulin -3.5 L, Album in/Globulin Ratio -1.2 L, Lipase 10 L, Urine Color Straw, Urine Clarity Clear, Urine pH 6.5, Ur Specific [place] 1.010, Urine Protein 15 H, Urine Glucose (UA) Normal, Urine Ketones 15 H, Urine OccultBlood Negative, Urine Nitrite Negative, Urine Bilirubin Negative, Urine Urobilinogen Normal, Ur Leukocyte Esterase Negative, Urine RBC 0 SEEN, Urine WBC 0-5 SEEN, Ur Squamous Epith Cells 0 SEEN, Urine Bacteria 0 SEEN, Urine Mucus 0 SEEN Imaging Radiology Impression Abdomen/Pelvis CT 01/19/25 14:28 IMPRESSION: Findings in keeping with a acute appendicitis. Calcified appendicoliths are seen within the appendiceal lumen. Loss of the normal lumbar lordosis as well as multilevel disc space narrowing. Red Alert: Acute appy The critical information above was relayed directly by me by telephone to Shun Tejeda on 01/19/2025 at 3:23 pm with readback verification. Reading Location: [facility] Assessment & Plan Assessment/Plan (1) Acute appendicitis: PLAN: Plan The patient is a 69-year-old male with acute appendicitis. I have offered him alaparoscopic appendectomy. We discussed the details of the planned procedure aswell as risks benefits and alternatives. He wishes to proceed. This will beginmomentarily 01/19/25 1604 Cosigner Signature (if applicable): CC: Dr. Mir Zamorano MD; Dr. Paolo Caraballo MD~ Signed [facility]07-07-2025 Consult note [facility] Medical Records Department [address] [place] [address] Pre-Anesthesia Evaluation 01/19/25 1550 MR#: [id number] Acct: [id number] Name: MELISSA YOUNG Rep #:[id number] : 1955 69 From: Venkat Shah MD PCP: Dr. Mir Zamorano MD Status :DEP ER Y Race: C Location: ED ASA Classification* ASA Classification ASA Classification: 2 and E Assessment & Plan Anesthesia* Anesthesia Assessment Anesthesia Assessment: Discussed sedation and/or anesthesia options, risks, benefits, and alternatives with patient/parents/legal guardian/POA. Questions invited. The patient/parents/legal guardian/POA seems to understand and agrees to proceedwith anesthesia plan. Reviewed the physical assessment, medical history, allergy history and patient home medications list prior to surgery/procedure/anesthetic and documented any changes. Performed airway and anesthesia risk assessments. Anesthesia Type Anesthesia Type: General Anesthesia Focused Assessment* Temperature: 98.9 F Pulse Rate: 78 Blood Pressure: 138/78 Respiratory Rate: 18 Pulse Ox: 98 Airway Assessment Mouth opens: >3 cm Mallampati Score: II Labs Anesthesia Preop lab: CBC WBC 10.6 K/mm3 (4.4-11.0) 01/19/25 14:05 01/19/25 RBC 4.42 M/mm3 (4.6-6.2) L 01/19/25 14:05 01/19/25 Hgb 14.6 g/dL (13.0-16.5) 01/19/25 14:01/19/25 Hct 41.2 % (40-54) 01/19/25 14:05 01/19/25 Plt Count 221 K/mm3 (150-450) 01/19/25 14:05 01/19/25 CHEMISTRY Potassium 3.7 mmol/L (3.3-5.1) 01/19/25 14:05 01/19/25 Sodium 133 mmol/L (133-145) 01/19/25 14:05 01/19/25 Magnesium 2.4 mg/dL (1.6-2.6) 01/20/21 16:47 01/20/21 BUN 5 mg/dL (4-19) 01/19/25 14:05 01/19/25 Creatinine 0.83 mg/dL (0.70-1.20) 01/19/25 14:05 01/19/25 Glucose 74 mg/dL (70-99) 01/19/25 14:05 01/19/25 TSH 1.94 uIU/mL (0.358-3.74) 12/07/23 10:36 COAG Pre-Assessment Diagnosis/Proposed Procedure Planned Operative Procedure(s): Laparoscopic appendectomy Anesthesia History 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 When Was Last Pacemaker Check QUESTION #4 FULL TEXT: You/Your Family Experience fever (hyperthermia) with Anesthesia Last Oral Intake Last Oral intake: Last Oral Intake NPO since Meds taken in AM with sips of water? 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 Has anyone observed you stop No 01/19/25 15:48 breathing during sleep? STOP Results Negative 01/19/25 15:48 QUESTION #5 FULL TEXT : Do you snore loudly (louder than talking or can be heard through closeddoors)? 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 Specify any problems Hx of Preganancy in last 3 Months Nurse Filling Out Transfusion & Questions: Date: Time: Patient unable to answer at this time (ie. 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 Hx Now No 01/19/25 15:48 Gestational Age (in weeks): EDC: Hx Hx Para Hx Section SAB No 01/19/25 15:48 Active Medications Active Medications: Current Medications Generic Name Dose Route Start Last Admin Trade Name Freq PRN Reason Stop Dose Admin Piperacillin Sod/Tazobactam 100 mls @ 200 mls/hr 01/19/25 15:23 01/19/25 15:46 Sod 4.5 gm/ Sodium Chloride IV 01/19/25 15:52 200 mls/hr X1 ONE Administration Iopamidol 0 ml 01/19/25 14:30 Contrast Allergy Safety Check IV X1 WILBER PFSH Medical History GERD (gastroesophageal reflux disease) Trigger finger Home Medications ?Medication ?Instructions ?Recorded ?Last Taken ?Type calcium carbonate (Antacid 400 mg PO Q4H PRN heartburn 01/19/25 Unknown History (calcium carbonate)) Allergy/AdvReac Type Severity Reaction Status Date / Time No Known Allergies Allergy Verified 01/19/25 13:03 Social History Smoking Status: Current every day smoker tobacco type: cigarettes Review of Systems (Anesthesia) ROS Narrative System reviewed and no additional complaints, except as documented. 01/19/25 1551 > Date _ Venkat Shah MD Cosigner Signature: Date CC: ~ Signed [facility]07-07-2025 Discharge summary [facility] Medical Records Department [address] [place] [address] Emergency Department Summary 01/19/25 MR#: [id number] Acct: [id number] Name: MELISSA YOUNG Rep #:[id number] : 1955 69 From: Shun Tejeda MD PCP: Dr. Mir Zamorano MD Status :REG ER Location: ED HPI HPI - GI History of Present Illness Chief Complaint: Abd Pain Informant: patient Abdominal Pain/Flank Pain Onset: Today and Yesterday Context: Gradual Onset Timing: Continuous Quality: Cramping and Stabbing Location: RLQ Current Severity: Moderate Maximum Severity: Moderate Worsened by: Car ride Relieved by: Nothing Nausea/Vomiting/Emesis GI Symptom: Positive for Nausea Onset: Today Severity: Mild Diarrhea/Melena/Hematochezia GI Symptom: Negative for Diarrhea, Melena or Hematochezia Associated Symptoms Associated Symptoms: Negative for Dysuria, Frequency, Hematuria or Urgency Narrative Narrative: 69-year-old male no prior abdominal surgeries. Says last night around 04/14/1930getting right lower quadrant dull that is progressively worse. No prior historyof this. Associated dry heaves but no vomiting no diarrhea. No dysuria. No fever. Said he had a bowel movement yesterday very small bowel this morning. States has never had pain like this before in his abdomen. Prior similar symptoms: No Recent Illness/Hospitalization: No PFSH PFSH Medical History GERD (gastroesophageal reflux disease) Trigger finger Home Medications ?Medication ?Instructions ?Recorded ?Last Taken ?Type calcium carbonate (Antacid 400 mg PO Q4H PRN heartburn 01/19/25 Unknown History (calcium carbonate)) Allergy/AdvReac Type Severity Reaction Status Date / Time No Known Allergies Allergy Verified 01/19/25 13:03 Social History Smoking Status: Current every day smoker tobacco type: cigarettes ROS ROS ED ROS Narrative Abdominal pain. Nausea. Constitutional Constitutional ED: Denies chills or fever(s) ENT ENT ED: Denies ear pain Cardiovascular Cardiovascular: Denies chest pain Respiratory/Chest Respiratory/Chest: Denies cough or dyspnea Gastrointestinal Gastrointestinal: Reports abdominal pain; Denies diarrhea, melena, nausea or vomiting Genitourinary Genitourinary ED: Denies dysuria or hematuria Musculoskeletal Musculoskeletal: Denies arthralgias Integumentary Denies abscess Neurologic Neurologic: Denies headache(s) Psychiatric Psychiatric: Denies anxiety Endocrine Endocrinology: Denies polydipsia Hematologic/Lymphatic Hematologic/Lymphatic: Denies easy bleeding Allergic/Immunologic Allergic/Immunologic ED: Denies mouth swelling, tongue swelling or urticaria EXAM Physical Exam Narrative Exam Narrative: C9-year-old male vital signs stable afebrile. Lying in bed. No one else present in room. H EENT exam pupils round reactive light. Moist mucous membranes. Neck nontender no JVD. No lymphadenopathy. Lungs clear to auscultation bilaterally. Heart regular rhythm rate about 85 no murmur. Chest wall ribsnontender. Abdomen soft nondistended. Normal bowel sounds. He does have squeezing tenderness right lower quadrant. No hernia or mass. No pulsatile mass. Right upper left upper left lower quadrant unremarkable. He ismoving all 4 extremities. Nontender no edema. Neurologically is awake alert. Answering questions following commands. Const Vital Signs: 01/19/25 13:03 01/19/25 14:47 Temperature 97.8 F 98.2 F Temperature Source Temporal Oral Pulse Rate 86 85 Respiratory Rate 18 11 L Blood Pressure 125/92 H 144/90 H Blood Pressure Mean 103 108 Pulse Ox 98 97 Oxygen Delivery Method Room Air Room Air Positive well nourished and well developed; Negative for cachectic, contracturesor unkempt General Appearance ED: well developed and NAD; Negative for unkempt, cachectic, contractures or pallor Nutritional Appearance: Negative for cachectic HEENT Reports moist mucous membranes normocephalic and atraumatic Eyes PERRL General Eye ED: Negative for pale conjunctiva or scleral icterus Neck no lymphadenopathy, supple and no JVD General: Negative for tenderness Resp normal respiratory effort and clear to auscultation bilaterally Cardio regular rate, regular rhythm, S1 normal heart sound, S2 normal heart sound and no murmurs GI non-distended and no masses; Negative for non-tender Auscultation: normoactive bowel sounds Palpation: soft and tender; Negative for guarding, rigid, hepatomegaly, splenomegaly, hernia, mass,pulsatile mass or rebound tenderness present Back/Spine no CVA tenderness General Back: Negative for CVA tenderness Cervical Spine: Negative for cervical spine tenderness Thoracic Spine / Upper Back: Negative for thoracic spinal tenderness Lumbar Spine / Lower Back: Negative for lumbar spinal tenderness Coccyx: Negative for other Extremity full ROM General Extremety ED: Negative for edema or tenderness General Extremity: Negative for edema Neuro CN's II-XII intact bilaterally and moves all extremities Sensorium / Orientation: alert, oriented to person, oriented to place and oriented to time Motor Exam: strength 5/5 throughout Psych mental status grossly normal and thought process normal Appearance: Negative for unkempt Attitude: No agitated Mood & Affect: Negative for depressed, anxious or tearful Skin no wounds General Skin Exam: Negative for jaundice or pallor Lesions: no lesions Rashes: no rashes Trauma: Negative for abrasion Nails: Negative for discolored MDM MDM MDM Narrative Medical decision making narrative: 69-year-old male right lower quadrant abdominal pain differential included appendicitis, right-sided diverticulitis I do not think it is a kidney stone. Twan not think it is his gallbladder. Currentlydoes not look obstructed. I do not see an obvious hernia. I would treated with morphine and Zofran.Liter fluid. Abdominal labs and a CT of his abdomen pelvis. Exam, history and CT consistent with acute appendicitis. To be treated with IV Zosyn. I have general surgery on page talk to them about the patient to be taken to the OR for appendicitis. Patient doing well on repeat exam at 3:25 PM. I told the his believe his about the CAT scan results and hewill be called to the operating room. I spoke to the general surgeon. He will admit the patient andis awaiting an open OR to do an appendectomy. History & Record Review Additional record(s) reviewed:: Prior inpatient record, Prior outpatient record and Prior ED visit Lab Data Attestation: I reviewed the patient's lab results. Lab results narrative: CBC shows a white count 10.6. H&H 14 and 41. Platelets 221. Chemistries show sodium 133. Gap 12. Normal BUN and creatinine. Glucose 74. Liver enzymes show a total bilirubin 1.78. Lipase 10. UA negative so far except for ketones. Micro pending. CAT scan abdomen pelvis shows acute appendicitis with appendicolith. Labs: Laboratory Results - last 24 hr 01/19/25 14:05 WBC 10.6 RBC 4.42 L Hgb 14.6 Hct 41.2 MCV 93.2 MCH 33.0 H MCHC 35.4 RDW Std Deviation 42.8 RDW Coeff of [place] 12.4 Plt Count 221 MPV 9.5 Immature Gran % (Auto) 0.400 Neut % (Auto) 80.4 H Lymph % (Auto) 7.3 L [place] % (Auto) 10.8 H Eos % (Auto) 0.9 Baso % (Auto) 0.2 Absolute Neuts (auto) 8.5 H Absolute Lymphs (auto) 0.77 L Nucleated RBC % 0 Sodium 133 Potassium 3.7 Chloride 98 Carbon Dioxide 23.1 Anion Gap 12 BUN 5 Creatinine 0.83 Estim Creat Clear Calc 83.55 Est GFR (MDRD) Non-Af 96 BUN/Creatinine Ratio 5.6 L Glucose 74 Calcium 8.6 Total Bilirubin 1.78 H AST 14 ALT 16 Alkaline Phosphatase 61 Total Protein 0.6 L Albumin 4.1 Globulin -3.5 L Albumin/Globulin Ratio -1.2 L Lipase 10 L Urine Color Straw Urine Clarity Clear Urine pH 6.5 Ur Specific [place] 1.010 Urine Protein 15 H Urine Glucose (UA) Normal Urine Ketones 15 H Urine Occult Blood Negative Urine Nitrite Negative Urine Bilirubin Negative Urine Urobilinogen Normal Ur Leukocyte Esterase Negative Radiography Diagnostic Testing: Clinical Impression(s) from Imaging Studies Abdomen/Pelvis CT 01/19/25 14:28 IMPRESSION: Findings in keeping with a acute appendicitis. Calcified appendicoliths are seen within the appendiceal lumen. Loss of the normal lumbar lordosis as well as multilevel disc space narrowing. Red Alert: Acute appy The critical information above was relayed directly by me by telephone to Shun Tejeda on 01/19/2025 at 3:23 pm with readback verification. Reading Location: [place] [address] Discharge Plan Dx/Rx/DC Orders Clinical Impression: Abdominal pain, acute, Acute appendicitis Disposition Disposition: Acute Care Hospital [facility] What to do if you have Problems For any increased pain, shortness of breath, bleeding, nausea or vomiting, chestpain, or any unexpected problems, contact your Primary Care Provider. Call [facility] ([phone]) or report tothe closest Emergency Room. Call 911 if necessary. 01/19/25 1528 Cosigner Signature (if applicable): CC: Dr. Mir Zamorano MD ~ Signed [facility]07-07-2025 Radiology Diagnostic study note [facility] Imaging Services [address] [place], [place] [id number] Abdomen/Pelvis W IV Cont ONLY MR#: [id number] Acct: [id number] Name: MELISSA YOUNG Rep #: [id number] : 1955 M 69 From: Misha Mendiola MD PCP: Dr. Mir Zamorano MD Status: REG ER Study:Abdomen/Pelvis W IV Cont ONLY Date of E xam: 01/19/25 Exam# [id number] Ordering Dr: Margie Tejeda MD PROCEDURE: ABDOMEN/PELVIS W IV CONT ONLY 01/19/2025 REASON FOR EXAM: RLQ ABD PAIN TECHNIQUE: ABDOMEN/PELVIS W IV CONT ONLY Coronal and Sagittal reconstruction series were provided. CONTRAST: Isovue-300 VOLUME: 100 mL One or more dose reduction techniques were used (e.g., Automated exposure control, adjustment of the mA and/or kV according to patient size, use of iterative reconstruction technique. RADIATION DOSE SUMMARY: CTDlvol: 18.1 mGy DLP: 871.72 mGycm COMPARISON: None FINDINGS: Lung bases: The lung bases are clear. Liver: Normal size. No mass. Gallbladder: Gallbladder is unremarkable. Spleen: Normal size. Pancreas: Normal size without evidence of mass surrounding inflammation or ductal dilation. Adrenals: Left adrenal nodule consistent with an adenoma Kidneys: Normal renal sizes. No hydronephrosis. Bladder: Bladder is unremarkable. Bowel: Unremarkable Appendix: The appendix appears distended with a surrounding inflammatory process. Findings present are consistent with appendicitis. No evidence of abscess. Appendicoliths are seen within the appendiceal lumen. Lymph nodes: Unremarkable. Vasculature: The abdominal aorta and IVC are normal. Peritoneum / Retroperitoneum: Unremarkable Bones: Degenerative changes of the spine. Loss of the normal lumbar lordosis. CT/Abdomen/Pelvis W IV Cont ONLY IMPRESSION: Findings in keeping with a acute appendicitis. Calcified appendicoliths are seen within the appendiceal lumen. Loss of the normal lumbar lordosis as well as multilevel disc space narrowing. Red Alert: Acute appy The critical information above was relayed directly by me by telephone to Shun Tejeda on 01/19/2025 at 3:23 pm with readback verification. Reading Location: [facility] CC: Dr. Mir Zamorano MD; Dr. Shun Tejeda MD ~ Mumps Developer: Signed [facility]07-07-2025 Discharge summary Author Shun Tejeda [facility] Note Date/Time January 19, 2025 3:28p m [facility] Medical Records Department [address] [place] [address] Emergency Department Summary 01/19/25 MR#: [id number] Acct: [id number] Name: MELISSA YOUNG Rep #:[id number] : 1955 69 From: Shun Tejeda MD PCP: Dr. Mir Zamorano MD Status :REG ER Location: ED HPI HPI - GI History of Present Illness Chief Complaint: Abd Pain Informant: patient Abdominal Pain/Flank Pain Onset: Today and Yesterday Context: Gradual Onset Timing: Continuous Quality: Cramping and Stabbing Location: RLQ Current Severity: Moderate Maximum Severity: Moderate Worsened by: Car ride Relieved by: Nothing Nausea/Vomiting/Emesis GI Symptom: Positive for Nausea Onset: Today Severity: Mild Diarrhea/Melena/Hematochezia GI Symptom: Negative for Diarrhea, Melena or Hematochezia Associated Symptoms Associated Symptoms: Negative for Dysuria, Frequency, Hematuria or Urgency Narrative Narrative: 69-year-old male no prior abdominal surgeries. Says last night around 04/14/1930getting right lower quadrant dull that is progressively worse. No prior historyof this. Associated dry heaves but no vomiting no diarrhea. No dysuria. No fever. Said he had a bowel movement yesterday very small bowel this morning. States has never had pain like this before in his abdomen. Prior similar symptoms: No Recent Illness/Hospitalization: No PFSH PFSH Medical History GERD (gastroesophageal reflux disease) Trigger finger Home Medications ?Medication ?Instructions ?Recorded ?Last Taken ?Type calcium carbonate (Antacid 400 mg PO Q4H PRN heartburn 01/19/25 Unknown History (calcium carbonate)) Allergy/AdvReac Type Severity Reaction Status Date / Time No Known Allergies Allergy Verified 01/19/25 13:03 Social History Smoking Status: Current every day smoker tobacco type: cigarettes ROS ROS ED ROS Narrative Abdominal pain. Nausea. Constitutional Constitutional ED: Denies chills or fever(s) ENT ENT ED: Denies ear pain Cardiovascular Cardiovascular: Denies chest pain Respiratory/Chest Respiratory/Chest: Denies cough or dyspnea Gastrointestinal Gastrointestinal: Reports abdominal pain; Denies diarrhea, melena, nausea or vomiting Genitourinary Genitourinary ED: Denies dysuria or hematuria Musculoskeletal Musculoskeletal: Denies arthralgias Integumentary Denies abscess Neurologic Neurologic: Denies headache(s) Psychiatric Psychiatric: Denies anxiety Endocrine Endocrinology: Denies polydipsia Hematologic/Lymphatic Hematologic/Lymphatic: Denies easy bleeding Allergic/Immunologic Allergic/Immunologic ED: Denies mouth swelling, tongue swelling or urticaria EXAM Physical Exam Narrative Exam Narrative: C9-year-old male vital signs stable afebrile. Lying in bed. No one else present in room. H EENT exam pupils round reactive light. Moist mucous membranes. Neck nontender no JVD. No lymphadenopathy. Lungs clear to auscultation bilaterally. Heart regular rhythm rate about 85 no murmur. Chest wall ribs nontender. Abdomen soft nondistended. Normal bowel sounds. He does have squeezing tenderness right lower quadrant. No hernia or mass. No pulsatile mass. Right upper left upper left lower quadrant unremarkable. He ismoving all 4 extremities. Nontender no edema. Neurologically is awake alert. Answering questions following commands. Const Vital Signs: 01/19/25 13:03 01/19/25 14:47 Temperature 97.8 F 98.2 F Temperature Source Temporal Oral Pulse Rate 86 85 Respiratory Rate 18 11 L Blood Pressure 125/92 H 144/90 H Blood Pressure Mean 103 108 Pulse Ox 98 97 Oxygen Delivery Method Room Air Room Air Positive well nourished and well developed; Negative for cachectic, contracturesor unkempt General Appearance ED: well developed and NAD; Negative for unkempt, cachectic, contractures or pallor Nutritional Appearance: Negative for cachectic HEENT Reports moist mucous membranes normocephalic and atraumatic Eyes PERRL General Eye ED: Negative for pale conjunctiva or scleral icterus Neck no lymphadenopathy, supple and no JVD General: Negative for tenderness Resp normal respiratory effort and clear to auscultation bilaterally Cardio regular rate, regular rhythm, S1 normal heart sound, S2 normal heart sound and no murmurs GI non-distended and no masses; Negative for non-tender Auscultation: normoactive bowel sounds Palpation: soft and tender; Negative for guarding, rigid, hepatomegaly, splenomegaly, hernia, mass, pulsatile mass or rebound tenderness present Back/Spine no CVA tenderness General Back: Negative for CVA tenderness Cervical Spine: Negative for cervical spine tenderness Thoracic Spine / Upper Back: Negative for thoracic spinal tenderness Lumbar Spine / Lower Back: Negative for lumbar spinal tenderness Coccyx: Negative for other Extremity full ROM General Extremety ED: Negative for edema or tenderness General Extremity: Negative for edema Neuro CN's II-XII intact bilaterally and moves all extremities Sensorium / Orientation: alert, oriented to person, oriented to place and oriented to time Motor Exam: strength 5/5 throughout Psych mental status grossly normal and thought process normal Appearance: Negative for unkempt Attitude: No agitated Mood & Affect: Negative for depressed, anxious or tearful Skin no wounds General Skin Exam: Negative for jaundice or pallor Lesions: no lesions Rashes: no rashes Trauma: Negative for abrasion Nails: Negative for discolored MDM MDM MDM Narrative Medical decision making narrative: 69-year-old male right lower quadrant abdominal pain differential included appendicitis, right-sided diverticulitis I do not think it is a kidney stone. Twan not think it is his gallbladder. Currently does not look obstructed. I do not see an obvious hernia. I would treated with morphine and Zofran. Liter fluid. Abdominal labs and a CT of his abdomen pelvis. Exam, history and CT consistent with acute appendicitis. To be treated with IV Zosyn. I have general surgery on page talk to them about the patient to be taken to the OR for appendicitis. Patient doing well on repeat exam at 3:25 PM. I told the his believe his about the CAT scan results and he will be called to the operating room. I spoke to the general surgeon. He will admit the patient and is awaiting an open OR to do an appendectomy. History & Record Review Additional record(s) reviewed:: Prior inpatient record, Prior outpatient record and Prior ED visit Lab Data Attestation: I reviewed the patient's lab results. Lab results narrative: CBC shows a white count 10.6. H&H 14 and 41. Platelets 221. Chemistries show sodium 133. Gap 12. Normal BUN and creatinine. Glucose 74. Liver enzymes show a total bilirubin 1.78. Lipase 10. UA negative so far except for ketones. Micro pending. CAT scan abdomen pelvis shows acute appendicitis with appendicolith. Labs: Laboratory Results - last 24 hr 01/19/25 14:05 WBC 10.6 RBC 4.42 L Hgb 14.6 Hct 41.2 MCV 93.2 MCH 33.0 H MCHC 35.4 RDW Std Deviation 42.8 RDW Coeff of [place] 12.4 Plt Count 221 MPV 9.5 Immature Gran % (Auto) 0.400 Neut % (Auto) 80.4 H Lymph % (Auto) 7.3 L [place] % (Auto) 10.8 H Eos % (Auto) 0.9 Baso % (Auto) 0.2 Absolute Neuts (auto) 8.5 H Absolute Lymphs (auto) 0.77 L Nucleated RBC % 0 Sodium 133 Potassium 3.7 Chloride 98 Carbon Dioxide 23.1 Anion Gap 12 BUN 5 Creatinine 0.83 Estim Creat Clear Calc 83.55 Est GFR (MDRD) Non-Af 96 BUN/Creatinine Ratio 5.6 L Glucose 74 Calcium 8.6 Total Bilirubin 1.78 H AST 14 ALT 16 Alkaline Phosphatase 61 Total Protein 0.6 L Albumin 4.1 Globulin -3.5 L Albumin/Globulin Ratio -1.2 L Lipase 10 L Urine Color Straw Urine Clarity Clear Urine pH 6.5 Ur Specific [place] 1.010 Urine Protein 15 H Urine Glucose (UA) Normal Urine Ketones 15 H Urine Occult Blood Negative Urine Nitrite Negative Urine Bilirubin Negative Urine Urobilinogen Normal Ur Leukocyte Esterase Negative Radiography Diagnostic Testing: Clinical Impression(s) from Imaging Studies Abdomen/Pelvis CT 01/19/25 14:28 IMPRESSION: Findings in keeping with a acute appendicitis. Calcified appendicoliths are seen within the appendiceal lumen. Loss of the normal lumbar lordosis as well as multilevel disc space narrowing. Red Alert: Acute appy The critical information above was relayed directly by me by telephone to Shun Tejeda on 01/19/2025 at 3:23 pm with readback verification. Reading Location: [place] [address] Discharge Plan Dx/Rx/DC Orders Clinical Impression: Abdominal pain, acute, Acute appendicitis Disposition Disposition: Acute Care Hospital [facility] What to do if you have Problems For any increased pain, shortness of breath, bleeding, nausea or vomiting, chestpain, or any unexpected problems, contact your Primary Care Provider. Call [facility] ([phone]) or report to the closest Emergency Room. Call 911 if necessary. 01/19/25 1528 <Electronically signed by Shun Tejeda MD> Cosigner Signature (if applicable): CC: Dr. 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 documented in this encounterLocustdale ClinicDischarge summary Author Paolo Caraballo [facility] Note Date/Time January 19, 2025 5:34p m [facility] Medical Records Department [address] [place] [address] Instructions for Home/Discharge Instructions 01/19/25 1729 MR#: [id number] Acct: [id number] Name: MELISSA YOUNG Rep #:[id number] : 1955 69 From: Paolo Caraballo MD PCP: Dr. Mir Zamorano MD Status :[place] [facility] [place] Instructions Diet Discharge Diet: Light diet - advance as tolerated Activity Discharge Activity: Return to Normal Activity and May Shower May shower in (days): 1 Ice area for (Minutes): 30 Lifting Restrictions: No lifting pushing or pulling more than 20 pounds for 4 weeks Dressing / Incision Call your doctor if your incision/area has: Continuous Slow Oozing, Sudden Increased Bleeding, Increased Pain/ Swelling, Increased Redness, Foul Smelling Discharge and Swelling at the incision site Call your doctor if you observe: Fever of 101 or Higher Cleanse incision/area with: Soap & Water Follow Up Care Please Follow Up With: Paolo Caraballo MD When: 2 weeks. Please call to schedule appointment Test Results: Test results from this visit will be discussed in further detail at your follow- up appointment, if applicable. Discharge Plan Admission Primary Reason for Your Visit: Appendicitis Attending Provider: Paolo Caraballo Primary Care Provider: Mir Zamorano Instructions Print Language: Bangladeshi Discharge Orders/Prescriptions Prescriptions: New oxycodone-acetaminophen [Percocet] 5-325 mg tablet 1 tab PO Q8H PRN (Reason: pain) 4 Days Qty: 12 0RF Continued calcium carbonate [Antacid (calcium carbonate)] 200 mg calcium (500 mg) tablet,chewable 400 mg PO Q4H PRN (Reason: heartburn) Referrals / Follow Up: Mir Zamorano MD [Primary Care Provider] - Disposition Disposition (needs filled in before D/C Order can be placed): Home, Self Care 01/19/25 8680<Electronically signed by Paolo Caraballo MD>Paolo Caraballo MD CC: Dr. Mir Zamorano MD ~ Signed [facility] Work Phone: Evaluation noteNo assessment information available [facility] Work Phone: Reason for referral (narrative)No reason for referral information availableWBelieve.inGalion Hospital Work Phone: Summary Purpose Family History No Family History Records FoundNo Family History Records Found Advance Directives Advance Directive Response Recorded Date/ Time Do you have a Healthcare Power of Breakfast Hostess? No January 19, 2025 1:51pm Advance Directives Yes October 15 3:39am Chief Complaint and Reason for Visit Chief Complaint Admit Date abd pain January 19, 2025 1:02p m Chief Complaint Admit Date abd pain January 19, 2025 4:01p m APPENDICITIS January 19, 2025 4:15p m Reason for Visit Admit Date Abdominal pain, acute January 19, 2025 4:1 5pm Acute appendicitis January 19, 2025 4:15p m Additional Source Comments Source Comments (unrecognize d section and content) In the event this informatio n is protected by the Federal Confidentiality of Alcohol and Drug Abuse Patient Records regulations: The Federal rules restrict any use of the information to criminally investigate or prosecute any alcohol or drug abuse patient.[facility] Reason for Visit (unrecogniz ed section and content) Reason Comments Release Of Medical Records Care Teams (unrecognized sec tion and content) [employer] Worker Relationship Specialty Start Date End Date Keegan Diallo (Historical) PCP - General 01/25/06 Team Status: Active Member Role/Relationship Status Dates Dr. Mir Zamorano MD Primary Care Provider Acti ve Team Status: Inactive Member Role/Relationship Status Dates Dr. Mir Zamorano MD Primary Care Provider Acti ve Start: January 19, 2025 End: January 19, 2025 Dr. Shun Tejeda MD Emergency Provider Active S tart: January 19, 2025 End: January 19, 2025 Team Status: Active Member Role/Relationship Status Dates Dr. Mir Zamorano MD Primary Care Provider Acti ve Start: January 19, 2025 Dr. Shun Tejeda MD Emergency Provider Active S tart: January 19, 2025 Dr. Paolo Caraballo MD Attending Provider Active Start: January 19, 2025 Team Status: Inactive Member Role/Relationship Status Dates Dr. Mir Zamorano MD Primary Care Provider Acti ve Start: January 19, 2025 End: January 19, 2025 Dr. Shun Tejeda MD Emergency Provider Active S tart: January 19, 2025 End: January 19, 2025 Dr. Paolo Caraballo MD Attending Provider Active Start: January 19, 2025 End: January 19, 2025 (unrecognized sect ion and content) No Status Records FoundNo Status Records Found INFORMATION SOURCE (unrecogn ized section and content) DATE CREATED AUTHOR 06/04/2022 [facility] DATE CREATED AUTHOR AUTHOR'S ORGANIZ ATION 05/17/2024 [facility] Goals (unrecognized section and content) Goals may be documented in a n alternate sectionGoals may be documented in an alternate section FOR RECORDS PERTAINING TO PATIENTS WHO ARE OR HAVE BEEN ENROLLED IN A CHEMICAL DEPENDENCY/SUBSTANCEABUSE PROGRAM, SOME INFORMATION MAY BE OMITTED. This clinical summary was aggregated from multiple sources. Caution should be exercised in using it in the provision of clinical care. This summary normalizes information from multiple sources, and as a consequence, information in this document may materially change the coding, format and clinical context of patient data. In addition, data may be omitted in some cases. CLINICAL DECISIONS SHOULD BE BASED ON THE PRIMARY CLINICAL RECORDS. [facility] [facility]. provides no warranty or guarantee of the accuracy or completeness of information in this document.
== END 2025-01-19 18:31 | disposition home or self-care (01) ==
LOC: ED 15:38 → SDC 16:16 → ACINP 16:17
PROVIDERS: Emergency Provider Emergency Medicine; PCP Family Medicine; Visit Provider Surgery
PROC: 0DTJ4ZZ Resection of Appendix, Percutaneous Endoscopic Approach (ICD-10-PCS; CPT 44970; principal; 2025-01-19 16:00)
DX: K35.80 Unspecified acute appendicitis (principal); F17.210 Nicotine dependence, cigarettes, uncomplicated
CPT/HCPCS: 44970; 00840; 74177; 80053; 81001; 83690; 85025; 88304; 99284; Q9967; A4216; J2405

== ENCOUNTER → 2025-04-28 | Outpatient (CLI) | payer MEDICARE, OTHER, SELFPAY ==
[2025-04-28 10:54] LABS: Hematocrit 41.7 % (40-54); Hemoglobin 14.5 g/dL (13.0-16.5); Immature Granulocytes Count 0.020 X10^3/uL (0.0-0.0); Mean Corp Hgb Conc 34.8 g/dL (32-36); Mean Corpuscular Volume 93.5 fL (80-94); Mean Platelet Vol. 10.0 fl (6.2-12.0); NRBC Flagged by Analyzer 0 % (0-5); POSITIVE DIFFERENTIAL YES; Platelet Count 223 K/mm3 (150-450); RBC Distribution Width CV 12.5 % (11.6-14.6); RBC Distribution Width SD 43.1 fl (35.1-43.9); Red Blood Count 4.46 M/mm3 (4.6-6.2); White Blood Count 5.8 K/mm3 (4.4-11.0)
[2025-04-28 11:31] LABS: AST(SGOT) 14 U/L (<=37); Alanine Aminotransfer ALT/SGPT 17 U/L (<=46); Albumin, Serum 4.2 g/dL (3.4-4.8); Alkaline Phosphatase 71 U/L (40-129); Anion Gap 9 (5-15); BUN 10 mg/dL (4-19); BUN/Creat Ratio 10.5 RATIO (10-20); Calcium,Total 9.7 mg/dL (7.6-11.0); Carbon Dioxide 26.2 mmol/L (21.0-32.0); Chloride 99 mmol/L (98-108); Cholesterol 198 mg/dL (<=200); Globulin 2.5 g/dL (2.2-4.2); Glucose 118 mg/dL (70-99); Low Density Lipoprotein Calc. 71 mg/dL; PSA,Total - Annual Screen 0.60 ng/mL (0.02-4.00); Potassium 4.7 mmol/L (3.3-5.1); Triglycerides 60 mg/dL; Very Low Density Lipoprotein 12 mg/dL (5-40); cholesterol:hdl ratio screen 1.72
[2025-04-28 11:33] LABS: Uric Acid 2.8 mg/dL (3.5-7.2)
[2025-04-28 13:32] LABS: Source- Body Fluid SYNOVIAL
[2025-04-28 13:34] LABS: Body Fluid QC Type(s) BF2; CRYSTALS, BODY FLUID Other, see comment
[2025-04-29 14:09] LABS: ANTINUCLEAR ANTIBODIES DIRECT Negative (Negative)
[2025-04-30 04:07] LABS: GGTP 18 IU/L (0-65)
== END | disposition home or self-care (01) ==
LOC: MFPLAB 09:04 → LABSPEC 12:23 → MFPLAB 12:25
PROVIDERS: PCP Family Medicine; Referring Provider Family Medicine; Visit Provider Family Medicine
DX: M70.52 Other bursitis of knee, left knee (principal); Z12.5 Encounter for screening for malignant neoplasm of prostate; Z13.220 Encounter for screening for lipoid disorders; F10.10 Alcohol abuse, uncomplicated
CPT/HCPCS: 36415; 80053; 80061; 82977; 84153; 84550; 85025; 85652; 86038; 86431; 89060; G0103